=== PATIENT | male | born 1950 | race Caucasian/White ===

== ENCOUNTER 2016-12-11 12:20 | Inpatient (IN) | payer MEDICARE, MEDICAID ==
[2016-12-11] MEDS ORDERED: Sodium Chloride 0.9% 1,000 ML IV ONE (12:31)
--- NOTE | 2016-12-11 14:09 | EDM.PDOC ---
ED HPI GENERAL MEDICAL PROBLEM - General Chief Complaint: Abdominal Pain Stated Complaint: LOW BLOOD PRESSURE/ DIARRHEA Time Seen by Provider: 12/11/16 12:30 Source of Information: Reports: Patient History Limitations: Reports: No limitations - History of Present Illness INITIAL COMMENTS - FREE TEXT/NARRATIVE: History of present illness: [66-year-old male presenting status post open abdominal surgery for colon repair status post colonoscopy with perforation. Patient complaining of generalized weakness and constant diarrhea.] Review of systems: As per history of present illness and below otherwise all systems reviewed and negative. Past medical history: As per history of present illness and as reviewed below otherwise noncontributory. Surgical history: As per history of present illness and as reviewed below otherwise noncontributory. Social history: No reported history of drug or alcohol abuse. Family history: As per history of present illness and as reviewed below otherwise noncontributory. Physical exam: HEENT: Atraumatic, normocephalic, pupils reactive, negative for conjunctival pallor or scleral icterus, mucous membranes moist, throat clear, neck supple, nontender, trachea midline. Lungs: Clear to auscultation, breath sounds equal but dim throughout, chest nontender. Heart: S1S2, regular, negative for clicks, rubs, or JVD. Abdomen: Soft, distended, tender, with hypoactive bowel sounds. Midline is first lydia in place with active drainage Negative for masses or hepatosplenomegaly. Negative for costovertebral tenderness. Pelvis: Stable nontender. Genitourinary: Deferred. Rectal: Deferred. Extremities: Atraumatic, negative for cords or calf pain. Neurovascular unremarkable. Neuro: Awake, alert, oriented. Cranial nerves II through XII unremarkable. Cerebellum unremarkable. Motor and sensory unremarkable throughout. Exam nonfocal. Skin: Patient is pale and slightly noriega with mild distress Diagnostics: [X-ray, CBC, CMP, CT of abdomen and pelvis] Therapeutics: [] Impression: [Postoperative ileus] Plan: [] Definitive disposition and diagnosis as appropriate pending reevaluation and review of above. - Related Data Allergies Allergy/AdvReac Type Severity Reaction Status Date / Time No Known Allergies Allergy Verified 12/26/15 11:46 Home Meds: Home Meds Acetaminophen [Tylenol] 325 mg PO Q4H PRN 02/01/14 [History] Aspirin [Colten Chewable Aspirin] 81 mg PO DAILY 02/01/14 [History] Naproxen Sodium [Aleve] 220 mg PO BID PRN 11/14/15 [History] Ranitidine HCl [Zantac] 150 mg PO DAILY PRN 11/30/16 [History] Past Medical History Cardiovascular History: Reports: High cholesterol Gastrointestinal History: Reports: Colon polyp, GERD Genitourinary History: Reports: None Psychiatric History: Reports: Developmental delay Oncologic (Cancer) History: Reports: Prostate - Past Surgical History Head Surgeries/Procedures: Reports: None GI Surgical History: Reports: Colonoscopy, Other (see below) Other GI Surgeries/Procedures: Colonoscopy with polypectomy, hemorrhoiectomy Male Surgical History: Reports: Other (see below) Other Male Surgeries/Procedures: Prostate CA, radiation tx Social & Family History - Family History Family Medical History: Noncontributory - Tobacco Use Smoking Status *Q: Former Smoker Used Tobacco, but Quit: Yes Month Tobacco Last Used: quit 20 years ago Second Hand Smoke Exposure: No - Alcohol Use Days Per Week of Alcohol Use: 0 Number of Drinks Per Day: 0 Total Drinks Per Week: 0 - Recreational Drug Use Recreational Drug Use: No Drug Use in Last 12 Months: No ED ROS GENERAL - Review of Systems Review Of Systems: See Below (See history of present illness) ED EXAM, GENERAL - Physical Exam Exam: See Below (See history of present illness) Course - Vital Signs Last Recorded V/S: Last Vital Signs Temp 36.3 C 12/11/16 12:25 Pulse 120 H 12/11/16 12:25 Resp 19 12/11/16 12:25 BP 93/67 12/11/16 12:25 Pulse Ox 94 L 12/11/16 12:25 - Orders/Labs/Meds Orders: Active Orders 24 hr Category Date Time Status EKG Documentation Completion [RC] STAT Care 12/11/16 12:31 Active CULTURE WOUND [RM] Stat Lab 12/11/16 14:20 Uncollected UA W/MICROSCOPIC [URIN] Stat Lab 12/11/16 14:20 Ordered Levofloxacin/Dextrose 5%-Water [Levaquin in D5W 750 MG/ Med 12/11/16 15:58 Ordered 150 ML] 750 mg Premix Bag 1 bag IV ONETIME Sodium Chloride 0.9% [Normal Saline] 2,000 ml Med 12/11/16 15:57 Ordered IV STAT metroNIDAZOLE/Normal Saline [Flagyl 500 MG in NS 100 ML Med 12/11/16 15:57 Ordered ] 500 mg Premix Bag 1 bag IV ONETIME Saline Lock Insert [OM.PC] Stat Oth 12/11/16 12:31 Ordered Medication Orders Sodium Chloride (Normal Saline) 2,000 mls @ 999 mls/hr IV STAT ONE Stop: 12/11/16 17:57 Metronidazole 500 mg/ Premix 100 mls @ 100 mls/hr IV ONETIME ONE Stop: 12/11/16 16:56 Levofloxacin/Dextrose 750 mg/ (Premix) 150 mls @ 100 mls/hr IV ONETIME ONE Stop: 12/11/16 17:27 Labs: Laboratory Tests 12/11/16 12/11/16 12/11/16 Range/Units 12:43 12:43 12:43 WBC 15.60 H (4.0-11.0) K/uL RBC 3.90 L (4.50-5.90) M/uL Hgb 12.0 L (13.0-17.0) g/dL Hct 37.6 L (38.0-50.0) % MCV 96.4 (80.0-98.0) fL MCH 30.8 (27.0-32.0) pg MCHC 31.9 (31.0-37.0) g/dL RDW Std Deviation 50.3 (28.0-62.0) fl RDW Coeff of Shruthi 14 (11.0-15.0) % Plt Count 239 (150-400) K/uL MPV 10.90 (7.40-12.00) fL Neut % (Auto) 89.0 H (48.0-80.0) % Lymph % (Auto) 6.3 L (16.0-40.0) % Saline % (Auto) 4.6 (0.0-15.0) % Eos % (Auto) 0.0 (0.0-7.0) % Baso % (Auto) 0.1 (0.0-1.5) % Neut # 13.9 H (1.4-5.7) K/uL Lymph # 1.0 (0.6-2.4) K/uL Saline # 0.7 (0.0-0.8) K/uL Eos # 0.0 (0.0-0.7) K/uL Baso # 0.0 (0.0-0.1) K/uL Nucleated RBC % 0.0 /100WBC Nucleated RBCs # 0 K/uL Lactate (0.20-2.00) mmol/L Sodium 139 (136-146) mmol/L Potassium 3.9 (3.5-5.1) mmol/L Chloride 103 (98-110) mmol/L Carbon Dioxide 20 L (21-31) mmol/L BUN 30 H (6.0-23.0) mg/dL Creatinine 3.1 H (0.6-1.5) mg/dL Est Cr Clr Drug Dosing 19.89 mL/min Estimated GFR (MDRD) 20.3 ml/min Glucose 179 H (60-110) mg/dL Calcium 8.4 L (8.8-10.8) mg/dL Magnesium 1.9 (1.5-2.3) mEq/L Total Bilirubin 0.7 (0.1-1.5) mg/dL AST 76 H (5-40) IU/L ALT 88 H (8-54) IU/L Alkaline Phosphatase 93 (40-150) Total Protein 6.7 (6.0-8.0) g/dL Albumin 3.3 L (3.4-4.8) g/dL Globulin 3.4 (2.0-3.5) g/dL Albumin/Globulin Ratio 1.0 L (1.3-2.8) 12/11/16 Range/Units 14:43 WBC (4.0-11.0) K/uL RBC (4.50-5.90) M/uL Hgb (13.0-17.0) g/dL Hct (38.0-50.0) % MCV (80.0-98.0) fL MCH (27.0-32.0) pg MCHC (31.0-37.0) g/dL RDW Std Deviation (28.0-62.0) fl RDW Coeff of Shruthi (11.0-15.0) % Plt Count (150-400) K/uL MPV (7.40-12.00) fL Neut % (Auto) (48.0-80.0) % Lymph % (Auto) (16.0-40.0) % Saline % (Auto) (0.0-15.0) % Eos % (Auto) (0.0-7.0) % Baso % (Auto) (0.0-1.5) % Neut # (1.4-5.7) K/uL Lymph # (0.6-2.4) K/uL Saline # (0.0-0.8) K/uL Eos # (0.0-0.7) K/uL Baso # (0.0-0.1) K/uL Nucleated RBC % /100WBC Nucleated RBCs # K/uL Lactate 3.7 H (0.20-2.00) mmol/L Sodium (136-146) mmol/L Potassium (3.5-5.1) mmol/L Chloride (98-110) mmol/L Carbon Dioxide (21-31) mmol/L BUN (6.0-23.0) mg/dL Creatinine (0.6-1.5) mg/dL Est Cr Clr Drug Dosing mL/min Estimated GFR (MDRD) ml/min Glucose (60-110) mg/dL Calcium (8.8-10.8) mg/dL Magnesium (1.5-2.3) mEq/L Total Bilirubin (0.1-1.5) mg/dL AST (5-40) IU/L ALT (8-54) IU/L Alkaline Phosphatase (40-150) Total Protein (6.0-8.0) g/dL Albumin (3.4-4.8) g/dL Globulin (2.0-3.5) g/dL Albumin/Globulin Ratio (1.3-2.8) Meds: Medications Generic Name Dose Route Start Last Admin Trade Name Freq PRN Reason Stop Dose Admin Sodium Chloride 2,000 mls @ 999 mls/hr 12/11/16 15:57 Normal Saline IV 12/11/16 17:57 STAT ONE Metronidazole 500 mg/ Premix 100 mls @ 100 mls/hr 12/11/16 15:57 IV 12/11/16 16:56 ONETIME ONE Levofloxacin/Dextrose 750 mg/ 150 mls @ 100 mls/hr 12/11/16 15:58 Premix IV 12/11/16 17:27 ONETIME ONE Discontinued Medications Generic Name Dose Route Start Last Admin Trade Name Freq PRN Reason Stop Dose Admin Sodium Chloride 1,000 mls @ 999 mls/hr 12/11/16 12:31 12/11/16 12:40 Normal Saline IV 12/11/16 13:31 999 mls/hr .Bolus ONE Administration Ciprofloxacin/Dextrose 400 mg/ 200 mls @ 200 mls/hr 12/11/16 16:00 Premix IV Q12H SCOOTER Departure - Departure Time of Disposition: 16:06 Disposition: Admitted As Inpatient 67 Condition: good Clinical Impression: Abdominal pain Forms: ED Department Discharge - My Orders Last 24 Hours: My Active Orders 12/11/16 12:31 EKG Documentation Completion [RC] STAT Saline Lock Insert [OM.PC] Stat 12/11/16 14:20 CULTURE WOUND [RM] Stat UA W/MICROSCOPIC [URIN] Stat 12/11/16 15:57 Sodium Chloride 0.9% [Normal Saline] 2,000 ml IV STAT metroNIDAZOLE/Normal Saline [Flagyl 500 MG in NS 100 ML] 500 mg Premix Bag 1 bag IV ONETIME 12/11/16 15:58 Levofloxacin/Dextrose 5%-Water [Levaquin in D5W 750 MG/150 ML] 750 mg Premix Bag 1 bag IV ONETIME - Assessment/Plan Last 24 Hours: My Active Orders 12/11/16 12:31 EKG Documentation Completion [RC] STAT Saline Lock Insert [OM.PC] Stat 12/11/16 14:20 CULTURE WOUND [RM] Stat UA W/MICROSCOPIC [URIN] Stat 12/11/16 15:57 Sodium Chloride 0.9% [Normal Saline] 2,000 ml IV STAT metroNIDAZOLE/Normal Saline [Flagyl 500 MG in NS 100 ML] 500 mg Premix Bag 1 bag IV ONETIME 12/11/16 15:58 Levofloxacin/Dextrose 5%-Water [Levaquin in D5W 750 MG/150 ML] 750 mg Premix Bag 1 bag IV ONETIME
--- NOTE | 2016-12-11 14:20 | CR ---
EXAMINATION: Portable chest radiograph. HISTORY: Shortness of breath. FINDINGS: The trachea is midline. The cardiomediastinal silhouette is within normal limits. No pulmonary infil trates, effusions or pneumothorax. Acromioclavicular osteoarthritic changes are noted. IMPRESSION: No acute cardiopulmonary process.
--- NOTE | 2016-12-11 15:36 | CT ---
CT of the abdomen and pelvis without contrast. HISTORY: Pain TECHNIQUE: Axial CT images were obtained of the abdomen and pelvis without contrast. Coronal and sag ittal reconstructions obtained. FINDINGS: There is mild consolidation within the retrocardiac left lower lobe. Mild atelectasis is noted withi n the right lung base. The liver, spleen, adrenal glands, and pancreas appear unremarkable for noncontrast examination. The gallbladder appears normal. There is no bulky retroperitoneal lymphadenopathy. No abdominal ascite s. Laparotomy changes are noted along the ventral abdomen with a 8 x 3 cm fluid collection under the incision. There are no calcifications noted within the kidneys or along the courses of the ureters bilaterally . There is small bowel noted dilated up to 4.6 cm. The colon is decompressed. There is a small amount of air and stranding adjacent to the sigmoid colon, possibly related to history of recent colonoscop y complications. There is no bulky pelvic lymphadenopathy. No free fluid. No free air. There is a si ngle pocket of air within the urinary bladder, likely secondary to recent instrumentation. The visualized osseous structures appear normal. There is an anterior bridging osteophyte at the rig ht SI joint. IMPRESSION: 1. There are multiple dilated loops of small bowel measuring up to 4.6 cm, likely secondary to a pos toperative ileus. A partial mechanical bowel obstruction cannot be excluded. 2. There is fluid and air tracking along the midline laparotomy incision, likely postoperative serom a/hematoma. Correlate clinically for focal pain or redness. 3. Small pocket of probable free air adjacent to the sigmoid colon, this may correlate with history of colonoscopy complication. Otherwise no free air is noted along the peritoneal surfaces. 4. Mild consolidation within the left lung base, pneumonia is not excluded. 5. Atelectasis and likely trace pleural effusion within the right lung base.
[2016-12-11] MEDS ORDERED: metroNIDAZOLE/Normal Saline 500 MG in Premix Bag 1 BAG IV ONE (15:57)
[2016-12-11] MEDS ORDERED: Sodium Chloride 0.9% 2,000 ML IV ONE (15:57)
[2016-12-11] MEDS ORDERED: Levofloxacin/Dextrose 5%-Water 750 MG in Premix Bag 1 BAG IV ONE (15:58)
[2016-12-11] MEDS ORDERED: Ciprofloxacin in D5W 400 MG in Premix Bag 1 BAG IV SCH ×2 (16:00)
[2016-12-11] MEDS ORDERED: Ondansetron 4 MG/2 ML SDV IVPUSH PRN (17:55)
[2016-12-11] MEDS ORDERED: Morphine 2 MG/ML Syringe IVPUSH PRN (17:55)
[2016-12-11] MEDS ORDERED: Acetaminophen 325 MG Tab PO PRN (17:55)
[2016-12-11] MEDS ORDERED: Sodium Chloride 0.9% 1,000 ML IV SCH (18:00)
--- NOTE | 2016-12-11 18:15 | PCM.SN ---
- Free Text/Narrative Note: pt seen, chart reviewed; pt likely developed chemical ileus due to narcotic use ; avoid use narcotic for pain, as pt is not hurting at all; hydration, npo w ice chips; consult note dictated
--- NOTE | 2016-12-11 19:35 | HP ---
DATE OF : 1950 PRIMARY CARE PHYSICIAN: Unknown PCP HISTORY OF PRESENT ILLNESS: The patient is a 66-year-old slightly mentally challenged gentleman, who came in on for colonoscopy, sustained colonoscopy tear and was urgently taken to the operating room, status post repair. No bowel resection. It was repair of a perforation and postop, the patient was doing fine for the first couple of days in ICU uneventful, and then transferred to the floor. At that time, was noted to have bowel distention and the patient had prolonged ileus, probably due to narcotic [employer] use. However, the patient is very concerned about his pets at home and really backing to go home and he is able to tolerate diet and afebrile. He was sent home on , three days ago. Home health care nurse called this morning that the patient is having profuse diarrhea and at the same time, hypotensive. The patient was seen in the emergency room. In the emergency room, the patient basically is asymptomatic; however, blood pressure has fluctuated between 110 to 96 systolic. EKG is showing sinus tachycardia. White count 15, H and H is 13 and 39. Creatinine is 3.0, the patient's baseline usually is around 1.2 or 1.3. PAST MEDICAL HISTORY: Please refer to previous admission for details. PAST SURGICAL HISTORY: Please refer to previous admission for details. ALLERGIES: Please refer to previous admission for details. MEDICATIONS: Please refer to previous admission for details. PHYSICAL EXAMINATION: GENERAL: An elderly gentleman resting in bed, in no acute distress. HEENT: Normocephalic, atraumatic. Sclerae anicteric. LUNGS: Clear to auscultation. HEART: Regular rate and rhythm. ABDOMEN: Distended with serous fluid seeping along the incision, but nontender. Diminished bowel sounds. LABORATORY DATA: Upon consultation, blood work is as described above and CAT scan shows possible probable pocket of free air around the sigmoid colon, but there is no free air under the diaphragm. A long discussion with Radiology and it is probably air trapped from surgery. In light of the whole situation, the patient also agreed to stay in the hospital for observation; however, in light of his rising creatinine, possible acute kidney injury, likely from dehydration, the patient may benefit from transfer to higher facility for further care. At that time being, we will put an NG tube, increase hydration, and keep in ICU and consult the hospitalist for management and long discussion with the patient and family member. The patient is admitted for postop ileus and hydration. Consult hospital for further management. As always, thank you for the kind referral. ZAY MIGUEL /[id number]
[2016-12-11] MEDS: Piperacillin/Tazobactam 2.25 GM in Sodium Chloride 0.9% 50 ML IV SCH (20:11)
[2016-12-11] MEDS: Lactated Ringers 1,000 ML IV SCH (20:25)
--- NOTE | 2016-12-11 20:25 | PCM.HP ---
H&P History of Present Illness - General Date of Service: 12/11/16 Source of Information: Patient, Family, Provider, RN - History of Present Illness Initial Comments - Free Text/Narative: history as per Dr Wiggins's note. He was found at home today with systolic blood pressure of 60 mm Hg and with hypotension noted. He was evaluated in theED and Dr Wiggins was also consulted on the case. - Related Data Allergies/Adverse Reactions: Allergies Allergy/AdvReac Type Severity Reaction Status Date / Time No Known Allergies Allergy Verified 12/26/15 11:46 Home Medications: Home Meds Acetaminophen [Tylenol] 325 mg PO Q4H PRN 02/01/14 [History] Aspirin [Colten Chewable Aspirin] 81 mg PO DAILY 02/01/14 [History] Naproxen Sodium [Aleve] 220 mg PO BID PRN 11/14/15 [History] Ranitidine HCl [Zantac] 150 mg PO DAILY PRN 11/30/16 [History] Past Medical History Cardiovascular History: Reports: High cholesterol Respiratory History: Denies: COPD Gastrointestinal History: Reports: Colon polyp, GERD Genitourinary History: Reports: None Neurological History: Reports: Other (see below) (history of chronic cognitive impairment). Denies: MS Psychiatric History: Reports: Developmental delay Endocrine/Metabolic History: Denies: Diabetes, type II Oncologic (Cancer) History: Reports: Prostate - Past Surgical History Head Surgeries/Procedures: Reports: None GI Surgical History: Reports: Colonoscopy, Other (see below) Other GI Surgeries/Procedures: Colonoscopy with polypectomy, hemorrhoiectomy Male Surgical History: Reports: Other (see below) Other Male Surgeries/Procedures: Prostate CA, radiation tx Social & Family History - Family History Family Medical History: Noncontributory - Tobacco Use Smoking Status *Q: Former Smoker Used Tobacco, but Quit: Yes Month Tobacco Last Used: quit 20 years ago Second Hand Smoke Exposure: No - Caffeine Use Caffeine Use: Reports: None - Alcohol Use Days Per Week of Alcohol Use: 0 Number of Drinks Per Day: 0 Total Drinks Per Week: 0 - Recreational Drug Use Recreational Drug Use: No Drug Use in Last 12 Months: No H&P Review of Systems - Review of Systems: Review Of Systems: See Below General: Denies: fever Pulmonary: Denies: shortness of breath, wheezing, cough, sputum Cardiovascular: Denies: chest pain, PND Gastrointestinal: Denies: Black stool, Bloody stool, Hematochezia Genitourinary: Denies: dysuria Skin: Denies: jaundice Neurological: Denies: confusion Exam - Exam Exam: See Below - Vital Signs Vital Signs: Last Vital Signs Temp 97.3 F 12/11/16 12:25 Pulse 108 H 12/11/16 19:28 Resp 20 12/11/16 19:28 BP 111/75 12/11/16 19:28 Pulse Ox 97 12/11/16 19:28 Weight: 141.1 kg - Exam General: alert HEENT: Other (dry oral mucosa) Neck: trachea midline Lungs: Clear to auscultation, Normal respiratory effort Cardiovascular: regular rate, regular rhythm Abdomen: soft, other (midline surgical wound with clear drainage. ) (Male) Exam: Deferred Rectal (Males) Exam: Deferred Extremities: No: edema Skin: other (cap refill delayed to about four seconds in toes. ) Neuro Extensive - Mental Status: normal mood/affect Neuro Extensive - Motor, Sensory, Reflexes: No: facial palsy (L), facial palsy ( R), hemiplagia (L), hemiplagia (R) - Patient Data Result Diagrams: 12/11/16 12:43 12/11/16 12:43 *Q Meaningful Use (ADM) - VTE *Q VTE Criteria *Q: - Stroke *Q Stroke Criteria *Q: - AMI *Q AMI Criteria *Q: - Problem List (1) Acute renal failure SNOMED Code(s): 94794179 ICD Code: N17.9 - ACUTE KIDNEY FAILURE, UNSPECIFIED Status: Acute Current Visit: Yes Problem List Initiated/Reviewed/Updated: Yes Orders Last 24hrs: Active Orders 24 hr Category Date Time Status Antiembolic Devices [RC] PER UNIT ROUTINE Care 12/11/16 17:57 Active NG [Gastrointestinal Tube Mgmt] [RC] ASDIRECTED Care 12/11/16 18:08 Active Notify Provider Consults [RC] ASDIRECTED Care 12/11/16 17:58 Active Oxygen Therapy [RC] PRN Care 12/11/16 17:55 Active VTE/DVT Education [RC] PER UNIT ROUTINE Care 12/11/16 17:55 Active Vital Signs [RC] Q4H Care 12/11/16 17:55 Active Consult to Physician [CONS] Routine Cons 12/11/16 17:55 Active NPO Now [Nothing per Oral Now Diet] [DIET] Diet 12/11/16 Breakfast Active Regular Diet [DIET] Diet 12/11/16 Dinner Active Abdomen 1V Flat [CR] Routine Exams 12/11/16 18:02 Taken CBC WITH AUTO DIFF [HEME] AM Lab 12/12/16 05:11 Ordered CBC WITH AUTO DIFF [HEME] AM Lab 12/13/16 05:11 Ordered CBC WITH AUTO DIFF [HEME] AM Lab 12/14/16 05:11 Ordered COMPREHENSIVE METABOLIC PN,CMP [CHEM] AM Lab 12/12/16 05:11 Ordered COMPREHENSIVE METABOLIC PN,CMP [CHEM] AM Lab 12/13/16 05:11 Ordered COMPREHENSIVE METABOLIC PN,CMP [CHEM] AM Lab 12/14/16 05:11 Ordered MAGNESIUM [CHEM] AM Lab 12/12/16 05:11 Ordered MAGNESIUM [CHEM] AM Lab 12/13/16 05:11 Ordered MAGNESIUM [CHEM] AM Lab 12/14/16 05:11 Ordered PHOSPHORUS [CHEM] AM Lab 12/12/16 05:11 Ordered UA W/O MICROSCOPIC [URIN] Routine Lab 12/11/16 17:55 Uncollected Acetaminophen [Tylenol] Med 12/11/16 17:55 Active 650 mg PO Q4H PRN Lactated Ringers [Ringers, Lactated] 1,000 ml Med 12/11/16 18:15 Active IV ASDIRECTED Ondansetron [Zofran] Med 12/11/16 17:55 Active 4 mg IVPUSH Q4H PRN Pantoprazole [Protonix IV] Med 12/11/16 21:00 Active 40 mg IV Q12HR Piperacillin/Tazobactam [Zosyn] 2.25 gm Med 12/11/16 18:00 Active Sodium Chloride 0.9% [Normal Saline] 50 ml IV Q6H Sodium Chloride 0.9% [Normal Saline] 1,000 ml Med 12/11/16 18:00 Active IV ASDIRECTED Nasogastric Orogastric Tube Insertion [OM.PC] Routine Oth 12/11/16 18:02 Ordered Sequential Compression Device [OM.PC] Per Unit Routine Oth 12/11/16 17:56 Ordered Resuscitation Status Routine Resus Stat 12/11/16 17:55 Ordered Medication Orders Acetaminophen (Tylenol) 650 mg PO Q4H PRN PRN Reason: Pain (Mild 1-3)/fever Piperacillin Sod/Tazobactam (Sod 2.25 gm/ Sodium Chloride) 50 mls @ 100 mls/hr IV Q6H SCOOTER Last Admin: 12/11/16 20:11 Dose: 100 mls/hr Sodium Chloride (Normal Saline) 1,000 mls @ 125 mls/hr IV ASDIRECTED SCOOTER Last Admin: 12/11/16 20:13 Dose: 125 mls/hr Lactated Ringer's (Ringers, Lactated) 1,000 mls @ 150 mls/hr IV ASDIRECTED SCOOTER Ondansetron HCl (Zofran) 4 mg IVPUSH Q4H PRN PRN Reason: Nausea Pantoprazole Sodium (Protonix Iv) 40 mg IV Q12HR ON LICENSE OF [facility] Assessment/Plan Comment:: must consider sepsis see orders must consider possibility of bowel perforation but not definite Dr Wiggins consulting on case. Dylan Mckee MD
[2016-12-11] MEDS ORDERED: Pantoprazole 40 MG Vial IV SCH (21:00)
[2016-12-11] MEDS: metroNIDAZOLE/Normal Saline 500 MG in Premix Bag 1 BAG IV SCH (21:01)
[2016-12-12] MEDS: Piperacillin/Tazobactam 2.25 GM in Sodium Chloride 0.9% 50 ML IV SCH ×4 (00:12→18:00)
[2016-12-12] MEDS: metroNIDAZOLE/Normal Saline 500 MG in Premix Bag 1 BAG IV SCH ×4 (02:12→21:07)
[2016-12-12] MEDS: Lactated Ringers 1,000 ML IV SCH ×2 (04:59→15:37)
--- NOTE | 2016-12-12 08:08 | PCM.SURGPN ---
- General Info Date of Service: 12/12/16 Functional Status: Reports: pain controlled - Review of Systems HEENT: Reports: no symptoms Gastrointestinal: Reports: No symptoms ("I passed flatus and I want my food") - Patient Data Vitals - most recent: Last Vital Signs Temp 97.2 F 12/12/16 04:00 Pulse 108 H 12/11/16 19:28 Resp 21 H 12/12/16 07:00 BP 116/79 12/12/16 07:00 Pulse Ox 91 L 12/12/16 07:00 Weight - most recent: 142 lb 13.753 oz I&O - last 24 hours: Intake & Output 12/11/16 12/12/16 12/12/16 22:59 06:59 14:59 Intake Total 216 1300 Output Total 560 Balance 216 740 Lab Results last 24 hrs: Laboratory Results - last 24 hr 12/11/16 12/11/16 12/12/16 Range/Units 21:20 22:22 05:50 WBC 13.58 H (4.0-11.0) K/uL RBC 3.09 L (4.50-5.90) M/uL Hgb 9.5 L (13.0-17.0) g/dL Hct 29.3 L (38.0-50.0) % MCV 94.8 (80.0-98.0) fL MCH 30.7 (27.0-32.0) pg MCHC 32.4 (31.0-37.0) g/dL RDW Std Deviation 49.9 (28.0-62.0) fl RDW Coeff of Shruthi 14 (11.0-15.0) % Plt Count 211 (150-400) K/uL MPV 10.80 (7.40-12.00) fL Neut % (Auto) 86.2 H (48.0-80.0) % Lymph % (Auto) 6.7 L (16.0-40.0) % [place] % (Auto) 7.0 (0.0-15.0) % Eos % (Auto) 0.0 (0.0-7.0) % Baso % (Auto) 0.1 (0.0-1.5) % Neut # 11.7 H (1.4-5.7) K/uL Lymph # 0.9 (0.6-2.4) K/uL [place] # 1.0 H (0.0-0.8) K/uL Eos # 0.0 (0.0-0.7) K/uL Baso # 0.0 (0.0-0.1) K/uL Nucleated RBC % 0.0 /100WBC Nucleated RBCs # 0 K/uL Lactate 1.8 (0.20-2.00) mmol/L Sodium (136-146) mmol/L Potassium (3.5-5.1) mmol/L Chloride (98-110) mmol/L Carbon Dioxide (21-31) mmol/L BUN (6.0-23.0) mg/dL Creatinine (0.6-1.5) mg/dL Est Cr Clr Drug Dosing mL/min Estimated GFR (MDRD) ml/min Glucose (60-110) mg/dL Calcium (8.8-10.8) mg/dL Phosphorus (2.4-4.7) mg/dL Magnesium (1.5-2.3) mEq/L Total Bilirubin (0.1-1.5) mg/dL AST (5-40) IU/L ALT (8-54) IU/L Alkaline Phosphatase (40-150) Total Protein (6.0-8.0) g/dL Albumin (3.4-4.8) g/dL Globulin (2.0-3.5) g/dL Albumin/Globulin Ratio (1.3-2.8) Urine Color YELLOW Urine Appearance SLT CLOUDY Urine pH 5.5 (5.0-8.0) Ur Specific [place] >= 1.030 (1.001-1.035) Urine Protein TRACE (NEGATIVE) mg/dL Urine Glucose (UA) NEGATIVE (NEGATIVE) mg/dL Urine Ketones NEGATIVE (NEGATIVE) mg/dL Urine Occult Blood TRACE-LYSED (NEGATIVE) Urine Nitrite NEGATIVE (NEGATIVE) Urine Bilirubin SMALL H (NEGATIVE) Urine Urobilinogen 0.2 (<2.0) EU/dL Ur Leukocyte Esterase NEGATIVE (NEGATIVE) 12/12/16 Range/Units 05:50 WBC (4.0-11.0) K/uL RBC (4.50-5.90) M/uL Hgb (13.0-17.0) g/dL Hct (38.0-50.0) % MCV (80.0-98.0) fL MCH (27.0-32.0) pg MCHC (31.0-37.0) g/dL RDW Std Deviation (28.0-62.0) fl RDW Coeff of Shruthi (11.0-15.0) % Plt Count (150-400) K/uL MPV (7.40-12.00) fL Neut % (Auto) (48.0-80.0) % Lymph % (Auto) (16.0-40.0) % [place] % (Auto) (0.0-15.0) % Eos % (Auto) (0.0-7.0) % Baso % (Auto) (0.0-1.5) % Neut # (1.4-5.7) K/uL Lymph # (0.6-2.4) K/uL [place] # (0.0-0.8) K/uL Eos # (0.0-0.7) K/uL Baso # (0.0-0.1) K/uL Nucleated RBC % /100WBC Nucleated RBCs # K/uL Lactate (0.20-2.00) mmol/L Sodium 139 (136-146) mmol/L Potassium 3.5 (3.5-5.1) mmol/L Chloride 110 (98-110) mmol/L Carbon Dioxide 18 L (21-31) mmol/L BUN 34 H (6.0-23.0) mg/dL Creatinine 1.8 H (0.6-1.5) mg/dL Est Cr Clr Drug Dosing 34.49 mL/min Estimated GFR (MDRD) 38.1 ml/min Glucose 125 H (60-110) mg/dL Calcium 7.5 L (8.8-10.8) mg/dL Phosphorus 3.7 (2.4-4.7) mg/dL Magnesium 1.6 (1.5-2.3) mEq/L Total Bilirubin 0.5 (0.1-1.5) mg/dL AST 24 (5-40) IU/L ALT 54 (8-54) IU/L Alkaline Phosphatase 72 (40-150) Total Protein 5.3 L (6.0-8.0) g/dL Albumin 2.6 L (3.4-4.8) g/dL Globulin 2.7 (2.0-3.5) g/dL Albumin/Globulin Ratio 1.0 L (1.3-2.8) Urine Color Urine Appearance Urine pH (5.0-8.0) Ur Specific [place] (1.001-1.035) Urine Protein (NEGATIVE) mg/dL Urine Glucose (UA) (NEGATIVE) mg/dL Urine Ketones (NEGATIVE) mg/dL Urine Occult Blood (NEGATIVE) Urine Nitrite (NEGATIVE) Urine Bilirubin (NEGATIVE) Urine Urobilinogen (<2.0) EU/dL Ur Leukocyte Esterase (NEGATIVE) Med Orders - Current: Current Medications Acetaminophen (Tylenol) 650 mg PO Q4H PRN PRN Reason: Pain (Mild 1-3)/fever Piperacillin Sod/Tazobactam (Sod 2.25 gm/ Sodium Chloride) 50 mls @ 100 mls/hr IV Q6H [facility] Last Admin: 12/12/16 05:37 Dose: 100 mls/hr Lactated Ringer's (Ringers, Lactated) 1,000 mls @ 125 mls/hr IV ASDIRECTED [facility] Last Infusion: 12/12/16 07:49 Dose: 125 mls/hr Metronidazole 500 mg/ Premix 100 mls @ 100 mls/hr IV Q6H [facility] Last Admin: 12/12/16 02:12 Dose: 100 mls/hr Ondansetron HCl (Zofran) 4 mg IVPUSH Q4H PRN PRN Reason: Nausea Pantoprazole Sodium (Protonix Iv) 40 mg IV Q12HR [facility] Last Admin: 12/11/16 21:02 Dose: 40 mg Discontinued Medications Sodium Chloride (Normal Saline) 1,000 mls @ 999 mls/hr IV .Bolus ONE Stop: 12/11/16 13:31 Last Admin: 12/11/16 12:40 Dose: 999 mls/hr Ciprofloxacin/Dextrose 400 mg/ (Premix) 200 mls @ 200 mls/hr IV Q12H [facility] Sodium Chloride (Normal Saline) 2,000 mls @ 999 mls/hr IV STAT ONE Stop: 12/11/16 17:57 Last Admin: 12/11/16 16:22 Dose: 999 mls/hr Metronidazole 500 mg/ Premix 100 mls @ 100 mls/hr IV ONETIME ONE Stop: 12/11/16 16:56 Last Admin: 12/11/16 16:22 Dose: 100 mls/hr Levofloxacin/Dextrose 750 mg/ (Premix) 150 mls @ 100 mls/hr IV ONETIME ONE Stop: 12/11/16 17:27 Last Admin: 12/11/16 18:08 Dose: 100 mls/hr Sodium Chloride (Normal Saline) 1,000 mls @ 125 mls/hr IV ASDIRECTED [facility] Last Admin: 12/11/16 20:13 Dose: 125 mls/hr Morphine Sulfate (Morphine) 2 mg IVPUSH Q2H PRN PRN Reason: Pain (severe 7-10) Stop: 12/12/16 17:56 - Exam General: alert, oriented Lungs: Normal respiratory effort Cardiovascular: regular rate Abdomen: no tenderness (decrease distention; wound has minimal clear serosang drainage) - Problem List Review Problem List Initiated/Reviewed/Updated: Yes - My Orders Last 24 Hours: Active Orders 24 hr Category Date Time Status Antiembolic Devices [RC] PER UNIT ROUTINE Care 12/11/16 17:57 Active NG [Gastrointestinal Tube Mgmt] [RC] Q4H Care 12/11/16 18:08 Active Notify Provider Consults [RC] ASDIRECTED Care 12/11/16 17:58 Active Oxygen Therapy [RC] PRN Care 12/11/16 17:55 Active VTE/DVT Education [RC] PER UNIT ROUTINE Care 12/11/16 17:55 Active Vital Signs [RC] Q1H Care 12/11/16 17:55 Active Consult to Physician [CONS] Routine Cons 12/11/16 17:55 Active Clear Liquid Diet [DIET] Diet 12/12/16 Breakfast Active Abdomen 1V Flat [CR] Routine Exams 12/11/16 18:02 Taken CBC WITH AUTO DIFF [HEME] AM Lab 12/13/16 05:11 Ordered CBC WITH AUTO DIFF [HEME] AM Lab 12/14/16 05:11 Ordered CDIFF TOX A+B [OP] Routine Lab 12/11/16 20:26 Uncollected COMPREHENSIVE METABOLIC PN,CMP [CHEM] AM Lab 12/13/16 05:11 Ordered COMPREHENSIVE METABOLIC PN,CMP [CHEM] AM Lab 12/14/16 05:11 Ordered MAGNESIUM [CHEM] AM Lab 12/13/16 05:11 Ordered MAGNESIUM [CHEM] AM Lab 12/14/16 05:11 Ordered Acetaminophen [Tylenol] Med 12/11/16 17:55 Active 650 mg PO Q4H PRN Lactated Ringers [Ringers, Lactated] 1,000 ml Med 12/11/16 18:15 Active IV ASDIRECTED Ondansetron [Zofran] Med 12/11/16 17:55 Active 4 mg IVPUSH Q4H PRN Pantoprazole [Protonix IV] Med 12/11/16 21:00 Active 40 mg IV Q12HR Piperacillin/Tazobactam [Zosyn] 2.25 gm Med 12/11/16 18:00 Active Sodium Chloride 0.9% [Normal Saline] 50 ml IV Q6H metroNIDAZOLE/Normal Saline [Flagyl 500 MG in NS 100 ML Med 12/11/16 20:30 Active ] 500 mg Premix Bag 1 bag IV Q6H Nasogastric Orogastric Tube Insertion [OM.PC] Routine Oth 12/11/16 18:02 Ordered Nasogastric Orogastric Tube Removal [OM.PC] Routine Oth 12/12/16 07:48 Ordered Sequential Compression Device [OM.PC] Per Unit Routine Oth 12/11/16 17:56 Ordered Resuscitation Status Routine Resus Stat 12/11/16 17:55 Ordered Medication Orders Acetaminophen (Tylenol) 650 mg PO Q4H PRN PRN Reason: Pain (Mild 1-3)/fever Piperacillin Sod/Tazobactam (Sod 2.25 gm/ Sodium Chloride) 50 mls @ 100 mls/hr IV Q6H [facility] Last Admin: 12/12/16 05:37 Dose: 100 mls/hr Infusion: 12/12/16 00:42 Dose: 100 mls/hr Admin: 12/12/16 00:12 Dose: 100 mls/hr Infusion: 12/11/16 20:41 Dose: 100 mls/hr Admin: 12/11/16 20:11 Dose: 100 mls/hr Lactated Ringer's (Ringers, Lactated) 1,000 mls @ 125 mls/hr IV ASDIRECTED [facility] Last Infusion: 12/12/16 07:49 Dose: 125 mls/hr Admin: 12/12/16 04:59 Dose: 150 mls/hr Infusion: 12/12/16 03:06 Dose: 150 mls/hr Admin: 12/11/16 20:25 Dose: 150 mls/hr Metronidazole 500 mg/ Premix 100 mls @ 100 mls/hr IV Q6H [facility] Last Admin: 12/12/16 02:12 Dose: 100 mls/hr Infusion: 12/11/16 22:01 Dose: 100 mls/hr Admin: 12/11/16 21:01 Dose: 100 mls/hr Ondansetron HCl (Zofran) 4 mg IVPUSH Q4H PRN PRN Reason: Nausea Pantoprazole Sodium (Protonix Iv) 40 mg IV Q12HR [facility] Last Admin: 12/11/16 21:02 Dose: 40 mg - Assessment Assessment (Free Text/Narrative):: uneventful; creatine improved to 1.8; adequate urine output, continue to be annie in color; ngt 200 cc in 24 hr; and pt is passing gas; dc ngt to clear liquid; sit up in chair; continue abd binder; re check lab in morning; decrease ivf to 125 - Plan Plan (Free Text/Narrative):: uneventful; creatine improved to 1.8; adequate urine output, continue to be annie in color; ngt 200 cc in 24 hr; and pt is passing gas; dc ngt to clear liquid; sit up in chair; continue abd binder; re check lab in morning; decrease ivf to 125
[2016-12-12] MEDS: Pantoprazole 40 MG in Sodium Chloride 0.9% 10 ML IV SCH ×2 (09:19→21:05)
--- NOTE | 2016-12-12 15:59 | PCM.PN ---
- General Info Date of Service: 12/12/16 Functional Status: Reports: pain controlled, tolerating diet (on clear liquids) - Review of Systems Gastrointestinal: Denies: Abdominal pain - Patient Data Vitals - most recent: Last Vital Signs Temp 97.5 F 12/12/16 12:00 Pulse 108 H 12/11/16 19:28 Resp 26 H 12/12/16 15:00 BP 116/76 12/12/16 15:00 Pulse Ox 93 L 12/12/16 15:00 Weight - most recent: 64.8 kg I&O - last 24 hours: Intake & Output 12/12/16 12/12/16 12/12/16 06:59 14:59 22:59 Intake Total 8824 625 5879 Output Total 560 Balance 618 869 2385 Lab Results last 24 hrs: Laboratory Results - last 24 hr 12/11/16 12/11/16 12/12/16 Range/Units 21:20 22:22 05:50 WBC 13.58 H (4.0-11.0) K/uL RBC 3.09 L (4.50-5.90) M/uL Hgb 9.5 L (13.0-17.0) g/dL Hct 29.3 L (38.0-50.0) % MCV 94.8 (80.0-98.0) fL MCH 30.7 (27.0-32.0) pg MCHC 32.4 (31.0-37.0) g/dL RDW Std Deviation 49.9 (28.0-62.0) fl RDW Coeff of Shruthi 14 (11.0-15.0) % Plt Count 211 (150-400) K/uL MPV 10.80 (7.40-12.00) fL Neut % (Auto) 86.2 H (48.0-80.0) % Lymph % (Auto) 6.7 L (16.0-40.0) % [place] % (Auto) 7.0 (0.0-15.0) % Eos % (Auto) 0.0 (0.0-7.0) % Baso % (Auto) 0.1 (0.0-1.5) % Neut # 11.7 H (1.4-5.7) K/uL Lymph # 0.9 (0.6-2.4) K/uL [place] # 1.0 H (0.0-0.8) K/uL Eos # 0.0 (0.0-0.7) K/uL Baso # 0.0 (0.0-0.1) K/uL Nucleated RBC % 0.0 /100WBC Nucleated RBCs # 0 K/uL Lactate 1.8 (0.20-2.00) mmol/L Sodium (136-146) mmol/L Potassium (3.5-5.1) mmol/L Chloride (98-110) mmol/L Carbon Dioxide (21-31) mmol/L BUN (6.0-23.0) mg/dL Creatinine (0.6-1.5) mg/dL Est Cr Clr Drug Dosing mL/min Estimated GFR (MDRD) ml/min Glucose (60-110) mg/dL Calcium (8.8-10.8) mg/dL Phosphorus (2.4-4.7) mg/dL Magnesium (1.5-2.3) mEq/L Total Bilirubin (0.1-1.5) mg/dL AST (5-40) IU/L ALT (8-54) IU/L Alkaline Phosphatase (40-150) Total Protein (6.0-8.0) g/dL Albumin (3.4-4.8) g/dL Globulin (2.0-3.5) g/dL Albumin/Globulin Ratio (1.3-2.8) Urine Color YELLOW Urine Appearance SLT CLOUDY Urine pH 5.5 (5.0-8.0) Ur Specific [place] >= 1.030 (1.001-1.035) Urine Protein TRACE (NEGATIVE) mg/dL Urine Glucose (UA) NEGATIVE (NEGATIVE) mg/dL Urine Ketones NEGATIVE (NEGATIVE) mg/dL Urine Occult Blood TRACE-LYSED (NEGATIVE) Urine Nitrite NEGATIVE (NEGATIVE) Urine Bilirubin SMALL H (NEGATIVE) Urine Urobilinogen 0.2 (<2.0) EU/dL Ur Leukocyte Esterase NEGATIVE (NEGATIVE) 12/12/16 Range/Units 05:50 WBC (4.0-11.0) K/uL RBC (4.50-5.90) M/uL Hgb (13.0-17.0) g/dL Hct (38.0-50.0) % MCV (80.0-98.0) fL MCH (27.0-32.0) pg MCHC (31.0-37.0) g/dL RDW Std Deviation (28.0-62.0) fl RDW Coeff of Shruthi (11.0-15.0) % Plt Count (150-400) K/uL MPV (7.40-12.00) fL Neut % (Auto) (48.0-80.0) % Lymph % (Auto) (16.0-40.0) % [place] % (Auto) (0.0-15.0) % Eos % (Auto) (0.0-7.0) % Baso % (Auto) (0.0-1.5) % Neut # (1.4-5.7) K/uL Lymph # (0.6-2.4) K/uL [place] # (0.0-0.8) K/uL Eos # (0.0-0.7) K/uL Baso # (0.0-0.1) K/uL Nucleated RBC % /100WBC Nucleated RBCs # K/uL Lactate (0.20-2.00) mmol/L Sodium 139 (136-146) mmol/L Potassium 3.5 (3.5-5.1) mmol/L Chloride 110 (98-110) mmol/L Carbon Dioxide 18 L (21-31) mmol/L BUN 34 H (6.0-23.0) mg/dL Creatinine 1.8 H (0.6-1.5) mg/dL Est Cr Clr Drug Dosing 34.49 mL/min Estimated GFR (MDRD) 38.1 ml/min Glucose 125 H (60-110) mg/dL Calcium 7.5 L (8.8-10.8) mg/dL Phosphorus 3.7 (2.4-4.7) mg/dL Magnesium 1.6 (1.5-2.3) mEq/L Total Bilirubin 0.5 (0.1-1.5) mg/dL AST 24 (5-40) IU/L ALT 54 (8-54) IU/L Alkaline Phosphatase 72 (40-150) Total Protein 5.3 L (6.0-8.0) g/dL Albumin 2.6 L (3.4-4.8) g/dL Globulin 2.7 (2.0-3.5) g/dL Albumin/Globulin Ratio 1.0 L (1.3-2.8) Urine Color Urine Appearance Urine pH (5.0-8.0) Ur Specific [place] (1.001-1.035) Urine Protein (NEGATIVE) mg/dL Urine Glucose (UA) (NEGATIVE) mg/dL Urine Ketones (NEGATIVE) mg/dL Urine Occult Blood (NEGATIVE) Urine Nitrite (NEGATIVE) Urine Bilirubin (NEGATIVE) Urine Urobilinogen (<2.0) EU/dL Ur Leukocyte Esterase (NEGATIVE) Wilmer Results last 24 hrs: Microbiology 12/12/16 09:10 Clostridium difficile Toxin A&B (M) - Final Stool / Feces Negative for C.Diff Toxin/AG Med Orders - Current: Current Medications Acetaminophen (Tylenol) 650 mg PO Q4H PRN PRN Reason: Pain (Mild 1-3)/fever Piperacillin Sod/Tazobactam (Sod 2.25 gm/ Sodium Chloride) 50 mls @ 100 mls/hr IV Q6H [facility] Last Admin: 12/12/16 11:59 Dose: 100 mls/hr Lactated Ringer's (Ringers, Lactated) 1,000 mls @ 100 mls/hr IV ASDIRECTED [facility] Last Admin: 12/12/16 15:37 Dose: 125 mls/hr Metronidazole 500 mg/ Premix 100 mls @ 100 mls/hr IV Q6H [facility] Last Admin: 12/12/16 13:51 Dose: 100 mls/hr Pantoprazole Sodium 40 mg/ (Sodium Chloride) 10 mls @ 300 mls/hr IV Q12H [facility] Last Admin: 12/12/16 09:19 Dose: 300 mls/hr Ondansetron HCl (Zofran) 4 mg IVPUSH Q4H PRN PRN Reason: Nausea Discontinued Medications Sodium Chloride (Normal Saline) 1,000 mls @ 999 mls/hr IV .Bolus ONE Stop: 12/11/16 13:31 Last Admin: 12/11/16 12:40 Dose: 999 mls/hr Ciprofloxacin/Dextrose 400 mg/ (Premix) 200 mls @ 200 mls/hr IV Q12H [facility] Sodium Chloride (Normal Saline) 2,000 mls @ 999 mls/hr IV STAT ONE Stop: 12/11/16 17:57 Last Admin: 12/11/16 16:22 Dose: 999 mls/hr Metronidazole 500 mg/ Premix 100 mls @ 100 mls/hr IV ONETIME ONE Stop: 12/11/16 16:56 Last Admin: 12/11/16 16:22 Dose: 100 mls/hr Levofloxacin/Dextrose 750 mg/ (Premix) 150 mls @ 100 mls/hr IV ONETIME ONE Stop: 12/11/16 17:27 Last Admin: 12/11/16 18:08 Dose: 100 mls/hr Sodium Chloride (Normal Saline) 1,000 mls @ 125 mls/hr IV ASDIRECTED [facility] Last Admin: 12/11/16 20:13 Dose: 125 mls/hr Morphine Sulfate (Morphine) 2 mg IVPUSH Q2H PRN PRN Reason: Pain (severe 7-10) Stop: 12/12/16 17:56 Pantoprazole Sodium (Protonix Iv) 40 mg IV Q12HR [facility] Last Admin: 12/11/16 21:02 Dose: 40 mg - Exam General: alert, cooperative Lungs: Clear to auscultation, Normal respiratory effort Cardiovascular: regular rate, regular rhythm Physical Findings Comments:: abdominal exam as per Dr Wiggins - Problem List & Annotations (1) Acute renal failure SNOMED Code(s): 91494753 Code(s): N17.9 - ACUTE KIDNEY FAILURE, UNSPECIFIED Status: Acute Current Visit: Yes (2) Sepsis SNOMED Code(s): 86003813 Code(s): A41.9 - SEPSIS, UNSPECIFIED ORGANISM Status: Acute Current Visit : Yes - Problem List Review Problem List Initiated/Reviewed/Updated: Yes - My Orders Last 24 Hours: My Active Orders 12/11/16 17:55 Oxygen Therapy [RC] PRN Vital Signs [RC] Q1H Consult to Physician [CONS] Routine Acetaminophen [Tylenol] 650 mg PO Q4H PRN Ondansetron [Zofran] 4 mg IVPUSH Q4H PRN Resuscitation Status Routine 12/11/16 17:56 Sequential Compression Device [OM.PC] Per Unit Routine 12/11/16 17:57 Antiembolic Devices [RC] PER UNIT ROUTINE 12/11/16 18:00 Piperacillin/Tazobactam [Zosyn] 2.25 gm Sodium Chloride 0.9% [Normal Saline] 50 ml IV Q6H 12/11/16 20:30 metroNIDAZOLE/Normal Saline [Flagyl 500 MG in NS 100 ML] 500 mg Premix Bag 1 bag IV Q6H 12/12/16 09:00 Pantoprazole [Protonix IV] 40 mg Sodium Chloride 0.9% [Normal Saline] 10 ml IV Q12H 12/12/16 15:54 Transfer Patient (Change bed) [ADT] Routine 12/13/16 05:11 CBC WITH AUTO DIFF [HEME] AM COMPREHENSIVE METABOLIC PN,CMP [CHEM] AM MAGNESIUM [CHEM] AM 12/14/16 05:11 CBC WITH AUTO DIFF [HEME] AM COMPREHENSIVE METABOLIC PN,CMP [CHEM] AM MAGNESIUM [CHEM] AM - Plan Plan:: must consider sepsis see orders must consider possibility of bowel perforation but not definite Dr Wiggins consulting on case. 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 At this point he is marketly improved. his acute renal failure is improved as manifested by his serum creatinine level trending downward. Carl Mckee MD
[2016-12-13] MEDS: Piperacillin/Tazobactam 2.25 GM in Sodium Chloride 0.9% 50 ML IV SCH ×4 (00:25→18:52)
[2016-12-13] MEDS: metroNIDAZOLE/Normal Saline 500 MG in Premix Bag 1 BAG IV SCH ×4 (02:23→20:29)
[2016-12-13] MEDS: Lactated Ringers 1,000 ML IV SCH ×2 (02:26→16:47)
[2016-12-13] MEDS: Pantoprazole 40 MG in Sodium Chloride 0.9% 10 ML IV SCH ×2 (08:06→20:27)
[2016-12-13] MEDS ORDERED: Potassium Chloride 20 MEQ Tab.ER PO ONE (15:46)
--- NOTE | 2016-12-13 16:03 | PCM.PN ---
- General Info Date of Service: 12/13/16 - Review of Systems Systems Review Comment:: taking po clear liquids no complaint of abdominal pain. - Patient Data Vitals - most recent: Last Vital Signs Temp 98.4 F 12/13/16 12:00 Pulse 99 12/13/16 12:00 Resp 18 12/13/16 12:00 BP 117/78 12/13/16 12:00 Pulse Ox 95 12/13/16 12:00 Weight - most recent: 65.952 kg I&O - last 24 hours: Intake & Output 12/13/16 12/13/16 12/13/16 06:59 14:59 22:59 Intake Total 1350 110 Output Total 350 Balance 1000 110 Lab Results last 24 hrs: Laboratory Results - last 24 hr 12/13/16 12/13/16 Range/Units 06:05 06:05 WBC 11.91 H (4.0-11.0) K/uL RBC 2.88 L (4.50-5.90) M/uL Hgb 9.0 L (13.0-17.0) g/dL Hct 28.6 L (38.0-50.0) % MCV 99.3 H (80.0-98.0) fL MCH 31.3 (27.0-32.0) pg MCHC 31.5 (31.0-37.0) g/dL RDW Std Deviation 48.9 (28.0-62.0) fl RDW Coeff of Shruthi 14 (11.0-15.0) % Plt Count 237 (150-400) K/uL MPV 11.00 (7.40-12.00) fL Neut % (Auto) 83.4 H (48.0-80.0) % Lymph % (Auto) 8.3 L (16.0-40.0) % [place] % (Auto) 7.8 (0.0-15.0) % Eos % (Auto) 0.3 (0.0-7.0) % Baso % (Auto) 0.2 (0.0-1.5) % Neut # 9.9 H (1.4-5.7) K/uL Lymph # 1.0 (0.6-2.4) K/uL [place] # 0.9 H (0.0-0.8) K/uL Eos # 0.0 (0.0-0.7) K/uL Baso # 0.0 (0.0-0.1) K/uL Sodium 139 (136-146) mmol/L Potassium 3.3 L (3.5-5.1) mmol/L Chloride 110 (98-110) mmol/L Carbon Dioxide 21 (21-31) mmol/L BUN 23 (6.0-23.0) mg/dL Creatinine 1.4 (0.6-1.5) mg/dL Est Cr Clr Drug Dosing 44.34 mL/min Estimated GFR (MDRD) 50.9 ml/min Glucose 110 (60-110) mg/dL Calcium 7.8 L (8.8-10.8) mg/dL Magnesium 1.6 (1.5-2.3) mEq/L Total Bilirubin 0.5 (0.1-1.5) mg/dL AST 14 (5-40) IU/L ALT 33 (8-54) IU/L Alkaline Phosphatase 61 (40-150) Total Protein 5.2 L (6.0-8.0) g/dL Albumin 2.7 L (3.4-4.8) g/dL Globulin 2.5 (2.0-3.5) g/dL Albumin/Globulin Ratio 1.1 L (1.3-2.8) Wilmer Results last 24 hrs: Microbiology 12/12/16 09:10 Clostridium difficile Toxin A&B (M) - Final Stool / Feces Negative for C.Diff Toxin/AG Med Orders - Current: Current Medications Acetaminophen (Tylenol) 650 mg PO Q4H PRN PRN Reason: Pain (Mild 1-3)/fever Piperacillin Sod/Tazobactam (Sod 2.25 gm/ Sodium Chloride) 50 mls @ 100 mls/hr IV Q6H [facility] Last Admin: 12/13/16 12:33 Dose: 100 mls/hr Lactated Ringer's (Ringers, Lactated) 1,000 mls @ 100 mls/hr IV ASDIRECTED [facility] Last Admin: 12/13/16 02:26 Dose: 100 mls/hr Metronidazole 500 mg/ Premix 100 mls @ 100 mls/hr IV Q6H [facility] Last Admin: 12/13/16 15:00 Dose: 100 mls/hr Pantoprazole Sodium 40 mg/ (Sodium Chloride) 10 mls @ 300 mls/hr IV Q12H [facility] Last Admin: 12/13/16 08:06 Dose: 300 mls/hr Ondansetron HCl (Zofran) 4 mg IVPUSH Q4H PRN PRN Reason: Nausea Discontinued Medications Sodium Chloride (Normal Saline) 1,000 mls @ 999 mls/hr IV .Bolus ONE Stop: 12/11/16 13:31 Last Admin: 12/11/16 12:40 Dose: 999 mls/hr Ciprofloxacin/Dextrose 400 mg/ (Premix) 200 mls @ 200 mls/hr IV Q12H [facility] Sodium Chloride (Normal Saline) 2,000 mls @ 999 mls/hr IV STAT ONE Stop: 12/11/16 17:57 Last Admin: 12/11/16 16:22 Dose: 999 mls/hr Metronidazole 500 mg/ Premix 100 mls @ 100 mls/hr IV ONETIME ONE Stop: 12/11/16 16:56 Last Admin: 12/11/16 16:22 Dose: 100 mls/hr Levofloxacin/Dextrose 750 mg/ (Premix) 150 mls @ 100 mls/hr IV ONETIME ONE Stop: 12/11/16 17:27 Last Admin: 12/11/16 18:08 Dose: 100 mls/hr Sodium Chloride (Normal Saline) 1,000 mls @ 125 mls/hr IV ASDIRECTED [facility] Last Admin: 12/11/16 20:13 Dose: 125 mls/hr Morphine Sulfate (Morphine) 2 mg IVPUSH Q2H PRN PRN Reason: Pain (severe 7-10) Stop: 12/12/16 17:56 Pantoprazole Sodium (Protonix Iv) 40 mg IV Q12HR [facility] Last Admin: 12/11/16 21:02 Dose: 40 mg Potassium Chloride (Klor-Con M20) 40 meq PO ONETIME ONE Stop: 12/13/16 15:47 - Exam General: alert, cooperative Lungs: Clear to auscultation, Normal respiratory effort Cardiovascular: regular rate, regular rhythm Abdomen: soft, no tenderness - Problem List & Annotations (1) Acute renal failure SNOMED Code(s): 62609848 Code(s): N17.9 - ACUTE KIDNEY FAILURE, UNSPECIFIED Status: Acute Current Visit: Yes (2) Sepsis SNOMED Code(s): 58235177 Code(s): A41.9 - SEPSIS, UNSPECIFIED ORGANISM Status: Acute Current Visit : Yes - Problem List Review Problem List Initiated/Reviewed/Updated: Yes - My Orders Last 24 Hours: My Active Orders 12/12/16 15:54 Transfer Patient (Change bed) [ADT] Routine 12/14/16 05:11 CBC WITH AUTO DIFF [HEME] AM COMPREHENSIVE METABOLIC PN,CMP [CHEM] AM MAGNESIUM [CHEM] AM - Plan Plan:: must consider sepsis see orders must consider possibility of bowel perforation but not definite Dr Wiggins consulting on case. 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 At this point he is marketly improved. his acute renal failure is improved as manifested by his serum creatinine level trending downward. Carl Mckee MD 12/13/2016 he reports flatus creatinine improving continue antibiotics possible advance diet tomorrow if OK with Dr WIGGINS possible discharge by Wednesday. He would like to consider [facility] to get his strength back. Carl Mckee MD
[2016-12-14] MEDS: Piperacillin/Tazobactam 2.25 GM in Sodium Chloride 0.9% 50 ML IV SCH ×4 (00:16→19:02)
[2016-12-14] MEDS: metroNIDAZOLE/Normal Saline 500 MG in Premix Bag 1 BAG IV SCH ×4 (02:21→19:46)
[2016-12-14] MEDS: Lactated Ringers 1,000 ML IV SCH (06:30)
[2016-12-14] MEDS: Pantoprazole 40 MG in Sodium Chloride 0.9% 10 ML IV SCH ×2 (08:57→21:25)
--- NOTE | 2016-12-14 10:55 | PCM.PN ---
- General Info Date of Service: 12/14/16 Admission Dx/Problem (Free Text): Abdominal pain, diarrhea Subjective Update: Feeling good today, Denies any abdominal pain, or chest pain. Intermittently SOB with cough. Still having some diarrhea. Abdominal binder in place to abdomen. Distension better. Functional Status: Reports: pain controlled, tolerating diet, ambulating, urinating - Review of Systems General: Reports: no symptoms. Denies: fever HEENT: Reports: no symptoms. Denies: sinus congestion, sore throat Pulmonary: Reports: shortness of breath ("little bit this morning" better now. ) , cough. Denies: sputum Cardiovascular: Reports: no symptoms. Denies: chest pain, palpitations, dyspnea on exertion, edema Gastrointestinal: Reports: Diarrhea. Denies: Abdominal pain, Nausea, Vomiting Genitourinary: Reports: no symptoms. Denies: dysuria, frequency, burning Musculoskeletal: Reports: no symptoms Skin: Reports: no symptoms Neurological: Reports: no symptoms Psychiatric: Reports: no symptoms - Patient Data Vitals - most recent: Last Vital Signs Temp 98.6 F 12/14/16 08:00 Pulse 70 12/14/16 08:00 Resp 20 12/14/16 08:00 BP 125/77 12/14/16 08:00 Pulse Ox 98 12/14/16 08:00 Weight - most recent: 66.5 kg I&O - last 24 hours: Intake & Output 12/13/16 12/14/16 12/14/16 22:59 06:59 14:59 Intake Total 1900 1199 Output Total 400 Balance 1500 1199 Lab Results last 24 hrs: Laboratory Results - last 24 hr 12/14/16 12/14/16 Range/Units 05:55 05:55 WBC 9.39 (4.0-11.0) K/uL RBC 2.85 L (4.50-5.90) M/uL Hgb 9.0 L (13.0-17.0) g/dL Hct 28.8 L (38.0-50.0) % MCV 101.1 H (80.0-98.0) fL MCH 31.6 (27.0-32.0) pg MCHC 31.3 (31.0-37.0) g/dL RDW Std Deviation 50.0 (28.0-62.0) fl RDW Coeff of Shruthi 14 (11.0-15.0) % Plt Count 258 (150-400) K/uL MPV 10.50 (7.40-12.00) fL Neut % (Auto) 78.1 (48.0-80.0) % Lymph % (Auto) 11.8 L (16.0-40.0) % [place] % (Auto) 8.9 (0.0-15.0) % Eos % (Auto) 0.9 (0.0-7.0) % Baso % (Auto) 0.3 (0.0-1.5) % Neut # 7.3 H (1.4-5.7) K/uL Lymph # 1.1 (0.6-2.4) K/uL [place] # 0.8 (0.0-0.8) K/uL Eos # 0.1 (0.0-0.7) K/uL Baso # 0.0 (0.0-0.1) K/uL Sodium 139 (136-146) mmol/L Potassium 3.9 (3.5-5.1) mmol/L Chloride 110 (98-110) mmol/L Carbon Dioxide 22 (21-31) mmol/L BUN 15 (6.0-23.0) mg/dL Creatinine 1.3 (0.6-1.5) mg/dL Est Cr Clr Drug Dosing 47.75 mL/min Estimated GFR (MDRD) 55.4 ml/min Glucose 103 (60-110) mg/dL Calcium 7.6 L (8.8-10.8) mg/dL Magnesium 1.6 (1.5-2.3) mEq/L Total Bilirubin 0.5 (0.1-1.5) mg/dL AST 13 (5-40) IU/L ALT 24 (8-54) IU/L Alkaline Phosphatase 53 (40-150) Total Protein 4.9 L (6.0-8.0) g/dL Albumin 2.5 L (3.4-4.8) g/dL Globulin 2.4 (2.0-3.5) g/dL Albumin/Globulin Ratio 1.0 L (1.3-2.8) Med Orders - Current: Current Medications Acetaminophen (Tylenol) 650 mg PO Q4H PRN PRN Reason: Pain (Mild 1-3)/fever Piperacillin Sod/Tazobactam (Sod 2.25 gm/ Sodium Chloride) 50 mls @ 100 mls/hr IV Q6H [facility] Last Admin: 12/14/16 05:25 Dose: 100 mls/hr Lactated Ringer's (Ringers, Lactated) 1,000 mls @ 100 mls/hr IV ASDIRECTED [facility] Last Admin: 12/14/16 06:30 Dose: 100 mls/hr Metronidazole 500 mg/ Premix 100 mls @ 100 mls/hr IV Q6H [facility] Last Admin: 12/14/16 08:06 Dose: 100 mls/hr Pantoprazole Sodium 40 mg/ (Sodium Chloride) 10 mls @ 300 mls/hr IV Q12H [facility] Last Admin: 12/14/16 08:57 Dose: 300 mls/hr Ondansetron HCl (Zofran) 4 mg IVPUSH Q4H PRN PRN Reason: Nausea Discontinued Medications Sodium Chloride (Normal Saline) 1,000 mls @ 999 mls/hr IV .Bolus ONE Stop: 12/11/16 13:31 Last Admin: 12/11/16 12:40 Dose: 999 mls/hr Ciprofloxacin/Dextrose 400 mg/ (Premix) 200 mls @ 200 mls/hr IV Q12H [facility] Sodium Chloride (Normal Saline) 2,000 mls @ 999 mls/hr IV STAT ONE Stop: 12/11/16 17:57 Last Admin: 12/11/16 16:22 Dose: 999 mls/hr Metronidazole 500 mg/ Premix 100 mls @ 100 mls/hr IV ONETIME ONE Stop: 12/11/16 16:56 Last Admin: 12/11/16 16:22 Dose: 100 mls/hr Levofloxacin/Dextrose 750 mg/ (Premix) 150 mls @ 100 mls/hr IV ONETIME ONE Stop: 12/11/16 17:27 Last Admin: 12/11/16 18:08 Dose: 100 mls/hr Sodium Chloride (Normal Saline) 1,000 mls @ 125 mls/hr IV ASDIRECTED [facility] Last Admin: 12/11/16 20:13 Dose: 125 mls/hr Morphine Sulfate (Morphine) 2 mg IVPUSH Q2H PRN PRN Reason: Pain (severe 7-10) Stop: 12/12/16 17:56 Pantoprazole Sodium (Protonix Iv) 40 mg IV Q12HR [facility] Last Admin: 12/11/16 21:02 Dose: 40 mg Potassium Chloride (Klor-Con M20) 40 meq PO ONETIME ONE Stop: 12/13/16 15:47 Last Admin: 12/13/16 16:46 Dose: 40 meq - Exam Quality Assessment: supplemental oxygen, DVT prophylaxis General: alert, oriented, cooperative HEENT: Pupils equal, Pupils reactive, EOMI, Mucous membr. moist/pink Neck: supple Lungs: Wheezing (scant wheezing throughout.) Cardiovascular: regular rate, regular rhythm, no murmurs Abdomen: bowel sounds present, soft, no tenderness, no distension Extremities: no edema, normal pulses, no tenderness/swelling Wound/Incisions: dressing dry and intact (abdoinal binder in place. Dr. Wiggins reports he will remove a couple lydia later today. ) Neurological: no new focal deficit Psy/Mental Status: alert, normal affect, normal mood - Problem List & Annotations (1) Abdominal pain SNOMED Code(s): 93398458 Code(s): R10.9 - UNSPECIFIED ABDOMINAL PAIN Status: Acute Current Visit: Yes (2) Acute renal failure SNOMED Code(s): 79845579 Code(s): N17.9 - ACUTE KIDNEY FAILURE, UNSPECIFIED Status: Resolved Current Visit: Yes (3) Sepsis SNOMED Code(s): 00061971 Code(s): A41.9 - SEPSIS, UNSPECIFIED ORGANISM Status: Resolved Current Visit: Yes (4) S/P exploratory laparotomy SNOMED Code(s): 875897676, 30336278, 152637650 Code(s): Z98.890 - OTHER SPECIFIED POSTPROCEDURAL STATES Status: Chronic Current Visit: No - Problem List Review Problem List Initiated/Reviewed/Updated: Yes - Plan Plan:: must consider sepsis see orders must consider possibility of bowel perforation but not definite Dr Wiggins consulting on case. 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 At this point he is marketly improved. his acute renal failure is improved as manifested by his serum creatinine level trending downward. Carl Mckee MD 12/13/2016 he reports flatus creatinine improving continue antibiotics possible advance diet tomorrow if OK with Dr WIGGINS possible discharge by Wednesday. He would like to consider [facility] to get his strength back. Carl Mckee MD 12/14/2016 1. S/p colon tear repair: Possibly had microperforation of colon with ileus. Leukocytosis improved today, 9,390. Passing flatus and having diarrhea today. Tolerating diet, Dr. Wiggins advancing to regular diet today. Abdominal incision still draining, culture returned skin kenneth. Abdominal binder in place. Continue Zosyn and Flagyl. BC negative. 2. Acute kidney injury: Improving, BUN15 Cr 1.3 today. Will stop IVFs and encourage PO intake. VTE: SCDs Dispo: Likely DC to [facility] in am for PT/OT Fouzia Butler [employer]
--- NOTE | 2016-12-14 11:02 | PCM.SURGPN ---
- General Info Date of Service: 12/14/16 - Review of Systems General: Reports: no symptoms (elizabeth full liquid, more flatus; no pain) Gastrointestinal: Reports: No symptoms - Patient Data Vitals - most recent: Last Vital Signs Temp 98.6 F 12/14/16 08:00 Pulse 70 12/14/16 08:00 Resp 20 12/14/16 08:00 BP 125/77 12/14/16 08:00 Pulse Ox 98 12/14/16 08:00 Weight - most recent: 146 lb 9.718 oz I&O - last 24 hours: Intake & Output 12/13/16 12/14/16 12/14/16 22:59 06:59 14:59 Intake Total 1900 1199 Output Total 400 Balance 1500 1199 Lab Results last 24 hrs: Laboratory Results - last 24 hr 12/14/16 12/14/16 Range/Units 05:55 05:55 WBC 9.39 (4.0-11.0) K/uL RBC 2.85 L (4.50-5.90) M/uL Hgb 9.0 L (13.0-17.0) g/dL Hct 28.8 L (38.0-50.0) % MCV 101.1 H (80.0-98.0) fL MCH 31.6 (27.0-32.0) pg MCHC 31.3 (31.0-37.0) g/dL RDW Std Deviation 50.0 (28.0-62.0) fl RDW Coeff of Shruthi 14 (11.0-15.0) % Plt Count 258 (150-400) K/uL MPV 10.50 (7.40-12.00) fL Neut % (Auto) 78.1 (48.0-80.0) % Lymph % (Auto) 11.8 L (16.0-40.0) % [place] % (Auto) 8.9 (0.0-15.0) % Eos % (Auto) 0.9 (0.0-7.0) % Baso % (Auto) 0.3 (0.0-1.5) % Neut # 7.3 H (1.4-5.7) K/uL Lymph # 1.1 (0.6-2.4) K/uL [place] # 0.8 (0.0-0.8) K/uL Eos # 0.1 (0.0-0.7) K/uL Baso # 0.0 (0.0-0.1) K/uL Sodium 139 (136-146) mmol/L Potassium 3.9 (3.5-5.1) mmol/L Chloride 110 (98-110) mmol/L Carbon Dioxide 22 (21-31) mmol/L BUN 15 (6.0-23.0) mg/dL Creatinine 1.3 (0.6-1.5) mg/dL Est Cr Clr Drug Dosing 47.75 mL/min Estimated GFR (MDRD) 55.4 ml/min Glucose 103 (60-110) mg/dL Calcium 7.6 L (8.8-10.8) mg/dL Magnesium 1.6 (1.5-2.3) mEq/L Total Bilirubin 0.5 (0.1-1.5) mg/dL AST 13 (5-40) IU/L ALT 24 (8-54) IU/L Alkaline Phosphatase 53 (40-150) Total Protein 4.9 L (6.0-8.0) g/dL Albumin 2.5 L (3.4-4.8) g/dL Globulin 2.4 (2.0-3.5) g/dL Albumin/Globulin Ratio 1.0 L (1.3-2.8) Med Orders - Current: Current Medications Acetaminophen (Tylenol) 650 mg PO Q4H PRN PRN Reason: Pain (Mild 1-3)/fever Piperacillin Sod/Tazobactam (Sod 2.25 gm/ Sodium Chloride) 50 mls @ 100 mls/hr IV Q6H [facility] Last Admin: 12/14/16 05:25 Dose: 100 mls/hr Lactated Ringer's (Ringers, Lactated) 1,000 mls @ 100 mls/hr IV ASDIRECTED [facility] Last Admin: 12/14/16 06:30 Dose: 100 mls/hr Metronidazole 500 mg/ Premix 100 mls @ 100 mls/hr IV Q6H [facility] Last Admin: 12/14/16 08:06 Dose: 100 mls/hr Pantoprazole Sodium 40 mg/ (Sodium Chloride) 10 mls @ 300 mls/hr IV Q12H [facility] Last Admin: 12/14/16 08:57 Dose: 300 mls/hr Ondansetron HCl (Zofran) 4 mg IVPUSH Q4H PRN PRN Reason: Nausea Discontinued Medications Sodium Chloride (Normal Saline) 1,000 mls @ 999 mls/hr IV .Bolus ONE Stop: 12/11/16 13:31 Last Admin: 12/11/16 12:40 Dose: 999 mls/hr Ciprofloxacin/Dextrose 400 mg/ (Premix) 200 mls @ 200 mls/hr IV Q12H [facility] Sodium Chloride (Normal Saline) 2,000 mls @ 999 mls/hr IV STAT ONE Stop: 12/11/16 17:57 Last Admin: 12/11/16 16:22 Dose: 999 mls/hr Metronidazole 500 mg/ Premix 100 mls @ 100 mls/hr IV ONETIME ONE Stop: 12/11/16 16:56 Last Admin: 12/11/16 16:22 Dose: 100 mls/hr Levofloxacin/Dextrose 750 mg/ (Premix) 150 mls @ 100 mls/hr IV ONETIME ONE Stop: 12/11/16 17:27 Last Admin: 12/11/16 18:08 Dose: 100 mls/hr Sodium Chloride (Normal Saline) 1,000 mls @ 125 mls/hr IV ASDIRECTED [facility] Last Admin: 12/11/16 20:13 Dose: 125 mls/hr Morphine Sulfate (Morphine) 2 mg IVPUSH Q2H PRN PRN Reason: Pain (severe 7-10) Stop: 12/12/16 17:56 Pantoprazole Sodium (Protonix Iv) 40 mg IV Q12HR [facility] Last Admin: 12/11/16 21:02 Dose: 40 mg Potassium Chloride (Klor-Con M20) 40 meq PO ONETIME ONE Stop: 12/13/16 15:47 Last Admin: 12/13/16 16:46 Dose: 40 meq - Exam Abdomen: soft, no tenderness (wound still sipping from umb, will continue monitoring, clear serosanguinous), no distension - Problem List Review Problem List Initiated/Reviewed/Updated: Yes - My Orders Last 24 Hours: Active Orders 24 hr Category Date Time Status Dressing Change [Wound Care] [RC] DAILY Care 12/14/16 09:53 Active Full Liquid Diet [DIET] Diet 12/13/16 Dinner Active Regular Diet [DIET] Diet 12/14/16 Lunch Active Medication Orders Acetaminophen (Tylenol) 650 mg PO Q4H PRN PRN Reason: Pain (Mild 1-3)/fever Piperacillin Sod/Tazobactam (Sod 2.25 gm/ Sodium Chloride) 50 mls @ 100 mls/hr IV Q6H [facility] Last Admin: 12/14/16 05:25 Dose: 100 mls/hr Infusion: 12/14/16 00:46 Dose: 100 mls/hr Admin: 12/14/16 00:16 Dose: 100 mls/hr Infusion: 12/13/16 19:22 Dose: 100 mls/hr Admin: 12/13/16 18:52 Dose: 100 mls/hr Infusion: 12/13/16 13:03 Dose: 100 mls/hr Admin: 12/13/16 12:33 Dose: 100 mls/hr Infusion: 12/13/16 06:58 Dose: 100 mls/hr Admin: 12/13/16 06:28 Dose: 100 mls/hr Infusion: 12/13/16 00:55 Dose: 100 mls/hr Admin: 12/13/16 00:25 Dose: 100 mls/hr Infusion: 12/12/16 18:30 Dose: 100 mls/hr Admin: 12/12/16 18:00 Dose: 100 mls/hr Infusion: 12/12/16 12:29 Dose: 100 mls/hr Admin: 12/12/16 11:59 Dose: 100 mls/hr Infusion: 12/12/16 06:07 Dose: 100 mls/hr Admin: 12/12/16 05:37 Dose: 100 mls/hr Infusion: 12/12/16 00:42 Dose: 100 mls/hr Admin: 12/12/16 00:12 Dose: 100 mls/hr Infusion: 12/11/16 20:41 Dose: 100 mls/hr Admin: 12/11/16 20:11 Dose: 100 mls/hr Lactated Ringer's (Ringers, Lactated) 1,000 mls @ 100 mls/hr IV ASDIRECTED [facility] Last Admin: 12/14/16 06:30 Dose: 100 mls/hr Infusion: 12/14/16 02:47 Dose: 100 mls/hr Admin: 12/13/16 16:47 Dose: 100 mls/hr Infusion: 12/13/16 12:26 Dose: 100 mls/hr Admin: 12/13/16 02:26 Dose: 100 mls/hr Infusion: 12/13/16 01:03 Dose: 100 mls/hr Infusion: 12/12/16 17:54 Dose: 100 mls/hr Admin: 12/12/16 15:37 Dose: 125 mls/hr Infusion: 12/12/16 12:25 Dose: 125 mls/hr Infusion: 12/12/16 07:49 Dose: 125 mls/hr Admin: 12/12/16 04:59 Dose: 150 mls/hr Infusion: 12/12/16 03:06 Dose: 150 mls/hr Admin: 12/11/16 20:25 Dose: 150 mls/hr Metronidazole 500 mg/ Premix 100 mls @ 100 mls/hr IV Q6H [facility] Last Admin: 12/14/16 08:06 Dose: 100 mls/hr Infusion: 12/14/16 03:21 Dose: 100 mls/hr Admin: 12/14/16 02:21 Dose: 100 mls/hr Infusion: 12/13/16 21:29 Dose: 100 mls/hr Admin: 12/13/16 20:29 Dose: 100 mls/hr Infusion: 12/13/16 16:00 Dose: 100 mls/hr Admin: 12/13/16 15:00 Dose: 100 mls/hr Infusion: 12/13/16 09:20 Dose: 100 mls/hr Admin: 12/13/16 08:20 Dose: 100 mls/hr Infusion: 12/13/16 03:23 Dose: 100 mls/hr Admin: 12/13/16 02:23 Dose: 100 mls/hr Infusion: 12/12/16 22:07 Dose: 100 mls/hr Admin: 12/12/16 21:07 Dose: 100 mls/hr Infusion: 12/12/16 14:51 Dose: 100 mls/hr Admin: 12/12/16 13:51 Dose: 100 mls/hr Infusion: 12/12/16 09:15 Dose: 100 mls/hr Admin: 12/12/16 08:15 Dose: 100 mls/hr Infusion: 12/12/16 03:12 Dose: 100 mls/hr Admin: 12/12/16 02:12 Dose: 100 mls/hr Infusion: 12/11/16 22:01 Dose: 100 mls/hr Admin: 12/11/16 21:01 Dose: 100 mls/hr Pantoprazole Sodium 40 mg/ (Sodium Chloride) 10 mls @ 300 mls/hr IV Q12H [facility] Last Admin: 12/14/16 08:57 Dose: 300 mls/hr Infusion: 12/13/16 20:29 Dose: 300 mls/hr Admin: 12/13/16 20:27 Dose: 300 mls/hr Infusion: 12/13/16 08:08 Dose: 300 mls/hr Admin: 12/13/16 08:06 Dose: 300 mls/hr Infusion: 12/12/16 21:07 Dose: 300 mls/hr Admin: 12/12/16 21:05 Dose: 300 mls/hr Infusion: 12/12/16 09:21 Dose: 300 mls/hr Admin: 12/12/16 09:19 Dose: 300 mls/hr Ondansetron HCl (Zofran) 4 mg IVPUSH Q4H PRN PRN Reason: Nausea - Assessment Assessment (Free Text/Narrative):: doing well, advance diet, likely dc to [facility] tomorrow, as pt is mentally challenged, and live by self; - Plan Plan (Free Text/Narrative):: doing well, advance diet, likely dc to [facility] tomorrow, as pt is mentally challenged, and live by self;
--- NOTE | 2016-12-14 15:06 | CR ---
EXAM DATE: 12/11/16 PATIENT'S AGE: 66 Patient: JOSE VEGAS Facility: [place], [place] Site . Site : 1950 Study: XRay Abdomen [id number] 6:17:46 PM Ordering Physician: Rafi Henry Final Report: HISTORY: NG tube placement. FINDINGS: A single supine radiograph abdomen demonstrates NG tube in place with the tip in the fundus of the stomach. The side hole is at the GE junction. Skin lydia seen along the midline. There is gaseous distention of small bowel loops distended to 5.1 cm. IMPRESSION: 1. The tip of the NG tube is in the fundus of stomach. The side hole is right at the GE junction. Consider advancing the NG tube 2-3 cm. 2. Dilated small bowel. Dictated by Rachel Espinosa MD @ 12/11/2016 6:41:04 PM Dictated by: Rachel Espinosa MD @ 12/11/2016 18:41:08 (Electronic Signature) Report Signed by Proxy and Original Signed Document filed in the Medical Record. MTDD
[2016-12-15] MEDS: Piperacillin/Tazobactam 2.25 GM in Sodium Chloride 0.9% 50 ML IV SCH ×2 (00:07→05:33)
[2016-12-15] MEDS: metroNIDAZOLE/Normal Saline 500 MG in Premix Bag 1 BAG IV SCH ×3 (02:21→18:11)
[2016-12-15 06:05] LABS: CHLORIDE,CL 112 mmol/L (98-110); SODIUM,NA 141 mmol/L (136-146)
--- NOTE | 2016-12-15 08:46 | PCM.SURGPN ---
- General Info Date of Service: 12/15/16 - Review of Systems General: Reports: no symptoms Gastrointestinal: Reports: No symptoms (elizabeth po; wound vac is on) - Patient Data Vitals - most recent: Last Vital Signs Temp 98.3 F 12/15/16 08:00 Pulse 101 H 12/15/16 08:00 Resp 20 12/15/16 08:00 BP 114/65 12/15/16 08:00 Pulse Ox 93 L 12/15/16 08:00 Weight - most recent: 144 lb 6.444 oz I&O - last 24 hours: Intake & Output 12/14/16 12/15/16 12/15/16 22:59 06:59 14:59 Intake Total 210 150 Balance 210 150 Lab Results last 24 hrs: Laboratory Results - last 24 hr 12/15/16 12/15/16 Range/Units 04:42 04:42 WBC 7.21 (4.0-11.0) K/uL RBC 3.06 L (4.50-5.90) M/uL Hgb 9.4 L (13.0-17.0) g/dL Hct 29.8 L (38.0-50.0) % MCV 97.4 (80.0-98.0) fL MCH 30.7 (27.0-32.0) pg MCHC 31.5 (31.0-37.0) g/dL RDW Std Deviation 51.1 (28.0-62.0) fl RDW Coeff of Shruthi 14 (11.0-15.0) % Plt Count 267 (150-400) K/uL MPV 10.10 (7.40-12.00) fL Neut % (Auto) 75.2 (48.0-80.0) % Lymph % (Auto) 11.5 L (16.0-40.0) % [place] % (Auto) 11.1 (0.0-15.0) % Eos % (Auto) 2.1 (0.0-7.0) % Baso % (Auto) 0.1 (0.0-1.5) % Neut # 5.4 (1.4-5.7) K/uL Lymph # 0.8 (0.6-2.4) K/uL [place] # 0.8 (0.0-0.8) K/uL Eos # 0.2 (0.0-0.7) K/uL Baso # 0.0 (0.0-0.1) K/uL Nucleated RBC % 0.0 /100WBC Nucleated RBCs # 0 K/uL Sodium 141 (136-146) mmol/L Potassium 3.7 (3.5-5.1) mmol/L Chloride 112 H (98-110) mmol/L Carbon Dioxide 21 (21-31) mmol/L BUN 13 (6.0-23.0) mg/dL Creatinine 1.2 (0.6-1.5) mg/dL Est Cr Clr Drug Dosing 51.73 mL/min Estimated GFR (MDRD) > 60.0 ml/min Glucose 99 (60-110) mg/dL Calcium 7.3 L (8.8-10.8) mg/dL Med Orders - Current: Current Medications Acetaminophen (Tylenol) 650 mg PO Q4H PRN PRN Reason: Pain (Mild 1-3)/fever Ondansetron HCl (Zofran) 4 mg IVPUSH Q4H PRN PRN Reason: Nausea Discontinued Medications Sodium Chloride (Normal Saline) 1,000 mls @ 999 mls/hr IV .Bolus ONE Stop: 12/11/16 13:31 Last Admin: 12/11/16 12:40 Dose: 999 mls/hr Ciprofloxacin/Dextrose 400 mg/ (Premix) 200 mls @ 200 mls/hr IV Q12H [facility] Sodium Chloride (Normal Saline) 2,000 mls @ 999 mls/hr IV STAT ONE Stop: 12/11/16 17:57 Last Admin: 12/11/16 16:22 Dose: 999 mls/hr Metronidazole 500 mg/ Premix 100 mls @ 100 mls/hr IV ONETIME ONE Stop: 12/11/16 16:56 Last Admin: 12/11/16 16:22 Dose: 100 mls/hr Levofloxacin/Dextrose 750 mg/ (Premix) 150 mls @ 100 mls/hr IV ONETIME ONE Stop: 12/11/16 17:27 Last Admin: 12/11/16 18:08 Dose: 100 mls/hr Piperacillin Sod/Tazobactam (Sod 2.25 gm/ Sodium Chloride) 50 mls @ 100 mls/hr IV Q6H [facility] Last Admin: 12/15/16 05:33 Dose: 100 mls/hr Sodium Chloride (Normal Saline) 1,000 mls @ 125 mls/hr IV ASDIRECTED [facility] Last Admin: 12/11/16 20:13 Dose: 125 mls/hr Lactated Ringer's (Ringers, Lactated) 1,000 mls @ 100 mls/hr IV ASDIRECTED [facility] Last Admin: 12/14/16 06:30 Dose: 100 mls/hr Metronidazole 500 mg/ Premix 100 mls @ 100 mls/hr IV Q6H [facility] Last Admin: 12/15/16 02:21 Dose: 100 mls/hr Pantoprazole Sodium 40 mg/ (Sodium Chloride) 10 mls @ 300 mls/hr IV Q12H [facility] Last Admin: 12/14/16 21:25 Dose: 300 mls/hr Piperacillin Sod/Tazobactam (Sod 3.375 gm/ Sodium Chloride) 50 mls @ 100 mls/ hr IV Q6H [facility] Morphine Sulfate (Morphine) 2 mg IVPUSH Q2H PRN PRN Reason: Pain (severe 7-10) Stop: 12/12/16 17:56 Pantoprazole Sodium (Protonix Iv) 40 mg IV Q12HR [facility] Last Admin: 12/11/16 21:02 Dose: 40 mg Potassium Chloride (Klor-Con M20) 40 meq PO ONETIME ONE Stop: 12/13/16 15:47 Last Admin: 12/13/16 16:46 Dose: 40 meq - Exam Abdomen: soft, no tenderness, no distension - Problem List Review Problem List Initiated/Reviewed/Updated: Yes - My Orders Last 24 Hours: Active Orders 24 hr Category Date Time Status Dressing Change [Wound Care] [RC] DAILY Care 12/14/16 09:53 Active Regular Diet [DIET] Diet 12/14/16 Lunch Active Wound Vac Management [OM.PC] Routine Oth 12/14/16 11:20 Ordered Medication Orders Acetaminophen (Tylenol) 650 mg PO Q4H PRN PRN Reason: Pain (Mild 1-3)/fever Ondansetron HCl (Zofran) 4 mg IVPUSH Q4H PRN PRN Reason: Nausea - Assessment Assessment (Free Text/Narrative):: doing well, stop abx; wound vac is on; ok to dc to SNF when wound vac available ; fu 1 wk - Plan Plan (Free Text/Narrative):: doing well, stop abx; wound vac is on; ok to dc to SNF when wound vac available ; fu 1 wk
[2016-12-15] MEDS ORDERED: Calcium Carbonate 500 MG Tab.Chew PO ONE (10:46)
--- NOTE | 2016-12-15 10:50 | PCM.PN ---
- General Info Date of Service: 12/15/16 Admission Dx/Problem (Free Text): Abdominal pain, diarrhea Subjective Update: Doing ok today, coughing up white clear phlegm. Has no chest pain or SOB complaints. Denies abdominal pain. Nursing noted he dropped to mid 70s ambulating and was placed to 4 L NC and returned to 90s. Functional Status: Reports: pain controlled, tolerating diet, ambulating, urinating - Review of Systems General: Reports: no symptoms. Denies: fever HEENT: Reports: no symptoms. Denies: sinus congestion, sore throat Pulmonary: Reports: shortness of breath (with walking "but i have to push alot" talking about IV pole), cough, sputum (white/clear phlem) Cardiovascular: Reports: no symptoms. Denies: chest pain, edema Gastrointestinal: Reports: No symptoms. Denies: Abdominal pain, Nausea, Vomiting Genitourinary: Reports: no symptoms. Denies: dysuria, frequency, burning Musculoskeletal: Reports: no symptoms - Patient Data Vitals - most recent: Last Vital Signs Temp 98.3 F 12/15/16 08:00 Pulse 101 H 12/15/16 08:00 Resp 20 12/15/16 08:00 BP 114/65 12/15/16 08:00 Pulse Ox 93 L 12/15/16 08:00 Weight - most recent: 65.5 kg I&O - last 24 hours: Intake & Output 12/14/16 12/15/16 12/15/16 22:59 06:59 14:59 Intake Total 210 150 Balance 210 150 Lab Results last 24 hrs: Laboratory Results - last 24 hr 12/15/16 12/15/16 Range/Units 04:42 04:42 WBC 7.21 (4.0-11.0) K/uL RBC 3.06 L (4.50-5.90) M/uL Hgb 9.4 L (13.0-17.0) g/dL Hct 29.8 L (38.0-50.0) % MCV 97.4 (80.0-98.0) fL MCH 30.7 (27.0-32.0) pg MCHC 31.5 (31.0-37.0) g/dL RDW Std Deviation 51.1 (28.0-62.0) fl RDW Coeff of Shruthi 14 (11.0-15.0) % Plt Count 267 (150-400) K/uL MPV 10.10 (7.40-12.00) fL Neut % (Auto) 75.2 (48.0-80.0) % Lymph % (Auto) 11.5 L (16.0-40.0) % [place] % (Auto) 11.1 (0.0-15.0) % Eos % (Auto) 2.1 (0.0-7.0) % Baso % (Auto) 0.1 (0.0-1.5) % Neut # 5.4 (1.4-5.7) K/uL Lymph # 0.8 (0.6-2.4) K/uL [place] # 0.8 (0.0-0.8) K/uL Eos # 0.2 (0.0-0.7) K/uL Baso # 0.0 (0.0-0.1) K/uL Nucleated RBC % 0.0 /100WBC Nucleated RBCs # 0 K/uL Sodium 141 (136-146) mmol/L Potassium 3.7 (3.5-5.1) mmol/L Chloride 112 H (98-110) mmol/L Carbon Dioxide 21 (21-31) mmol/L BUN 13 (6.0-23.0) mg/dL Creatinine 1.2 (0.6-1.5) mg/dL Est Cr Clr Drug Dosing 51.73 mL/min Estimated GFR (MDRD) > 60.0 ml/min Glucose 99 (60-110) mg/dL Calcium 7.3 L (8.8-10.8) mg/dL Med Orders - Current: Current Medications Acetaminophen (Tylenol) 650 mg PO Q4H PRN PRN Reason: Pain (Mild 1-3)/fever Calcium Carbonate/Glycine (Tums) 1,000 mg PO ONETIME ONE Stop: 12/15/16 10:47 Ondansetron HCl (Zofran) 4 mg IVPUSH Q4H PRN PRN Reason: Nausea Discontinued Medications Sodium Chloride (Normal Saline) 1,000 mls @ 999 mls/hr IV .Bolus ONE Stop: 12/11/16 13:31 Last Admin: 12/11/16 12:40 Dose: 999 mls/hr Ciprofloxacin/Dextrose 400 mg/ (Premix) 200 mls @ 200 mls/hr IV Q12H [facility] Sodium Chloride (Normal Saline) 2,000 mls @ 999 mls/hr IV STAT ONE Stop: 12/11/16 17:57 Last Admin: 12/11/16 16:22 Dose: 999 mls/hr Metronidazole 500 mg/ Premix 100 mls @ 100 mls/hr IV ONETIME ONE Stop: 12/11/16 16:56 Last Admin: 12/11/16 16:22 Dose: 100 mls/hr Levofloxacin/Dextrose 750 mg/ (Premix) 150 mls @ 100 mls/hr IV ONETIME ONE Stop: 12/11/16 17:27 Last Admin: 12/11/16 18:08 Dose: 100 mls/hr Piperacillin Sod/Tazobactam (Sod 2.25 gm/ Sodium Chloride) 50 mls @ 100 mls/hr IV Q6H [facility] Last Admin: 12/15/16 05:33 Dose: 100 mls/hr Sodium Chloride (Normal Saline) 1,000 mls @ 125 mls/hr IV ASDIRECTED [facility] Last Admin: 12/11/16 20:13 Dose: 125 mls/hr Lactated Ringer's (Ringers, Lactated) 1,000 mls @ 100 mls/hr IV ASDIRECTED [facility] Last Admin: 12/14/16 06:30 Dose: 100 mls/hr Metronidazole 500 mg/ Premix 100 mls @ 100 mls/hr IV Q6H [facility] Last Admin: 12/15/16 02:21 Dose: 100 mls/hr Pantoprazole Sodium 40 mg/ (Sodium Chloride) 10 mls @ 300 mls/hr IV Q12H [facility] Last Admin: 12/14/16 21:25 Dose: 300 mls/hr Piperacillin Sod/Tazobactam (Sod 3.375 gm/ Sodium Chloride) 50 mls @ 100 mls/ hr IV Q6H [facility] Morphine Sulfate (Morphine) 2 mg IVPUSH Q2H PRN PRN Reason: Pain (severe 7-10) Stop: 12/12/16 17:56 Pantoprazole Sodium (Protonix Iv) 40 mg IV Q12HR [facility] Last Admin: 12/11/16 21:02 Dose: 40 mg Potassium Chloride (Klor-Con M20) 40 meq PO ONETIME ONE Stop: 12/13/16 15:47 Last Admin: 12/13/16 16:46 Dose: 40 meq - Exam Quality Assessment: supplemental oxygen, DVT prophylaxis General: alert, oriented, cooperative Neck: supple Lungs: Clear to auscultation, Normal respiratory effort Cardiovascular: regular rate, regular rhythm Abdomen: bowel sounds present, soft, no tenderness, no distension, other ( abdominal binder intact.) Extremities: normal pulses, no tenderness/swelling, no calf tenderness Wound/Incisions: dressing dry and intact (wound vac in place. ) Neurological: no new focal deficit Psy/Mental Status: alert, normal affect, normal mood - Problem List & Annotations (1) Abdominal pain SNOMED Code(s): 47938123 Code(s): R10.9 - UNSPECIFIED ABDOMINAL PAIN Status: Acute Current Visit: Yes (2) Acute renal failure SNOMED Code(s): 08772956 Code(s): N17.9 - ACUTE KIDNEY FAILURE, UNSPECIFIED Status: Resolved Current Visit: Yes (3) Sepsis SNOMED Code(s): 10715179 Code(s): A41.9 - SEPSIS, UNSPECIFIED ORGANISM Status: Resolved Current Visit: Yes (4) S/P exploratory laparotomy SNOMED Code(s): 932160300, 01035372, 681086326 Code(s): Z98.890 - OTHER SPECIFIED POSTPROCEDURAL STATES Status: Chronic Current Visit: No - Problem List Review Problem List Initiated/Reviewed/Updated: Yes - My Orders Last 24 Hours: My Active Orders 12/15/16 10:46 Chest 2V [CR] Routine Calcium Carbonate [Tums] 1,000 mg PO ONETIME ONE 12/15/16 11:00 Ciprofloxacin in D5W [Cipro in D5W 400 MG/200 ML] 400 mg Premix Bag 1 bag IV Q12H 12/15/16 12:00 metroNIDAZOLE/Normal Saline [Flagyl 500 MG in NS 100 ML] 500 mg Premix Bag 1 bag IV QID - Plan Plan:: must consider sepsis see orders must consider possibility of bowel perforation but not definite Dr Wiggins consulting on case. 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 At this point he is marketly improved. his acute renal failure is improved as manifested by his serum creatinine level trending downward. Carl Mckee MD 12/13/2016 he reports flatus creatinine improving continue antibiotics possible advance diet tomorrow if OK with Dr WIGGINS possible discharge by Wednesday. He would like to consider [facility] to get his strength back. Carl Mckee MD 12/14/2016 1. S/p colon tear repair: Possibly had microperforation of colon with ileus. Leukocytosis improved today, 9,390. Passing flatus and having diarrhea today. Tolerating diet, Dr. Wiggins advancing to regular diet today. Abdominal incision still draining, culture returned skin kenneth. Abdominal binder in place. Continue Zosyn and Flagyl. BC negative. 2. Acute kidney injury: Improving, BUN 15 Cr 1.3 today. Will stop IVFs and encourage PO intake. VTE: SCDs Dispo: Likely DC to [facility] in [facility] for PT/OT [facility] PERDUE 12/15/2016 1. S/p colon tear repair: Possibly had microperforation of colon with ileus. Leukocytosis continues to improve, 7,000. Passing flatus and having diarrhea today. Tolerating Regular diet. Wound Vac placed per Dr. Wiggins and is draining. Culture returned skin kenneth. Abdominal binder in place. Due to sepsis upon admission will continue Ciprofloxacin and Flagyl for a total of 14 days. BC remain negative. 2. Acute kidney injury: Improving, BUN 13 Cr 1.2 today. Encourage PO intake. 3. Hypoxia: increased need oxygen needs. Will obtain CXR. LS clear and coughing up clear phlegm intermittently. Encourage IS. VTE: SCDs Dispo: DC to [facility] when wound vac is available at [facility] for patient use. [facility] PERDUE
[2016-12-15] MEDS ORDERED: Piperacillin/Tazobactam 3.375 GM in Sodium Chloride 0.9% 50 ML IV SCH (12:00)
[2016-12-15] MEDS: Ciprofloxacin in D5W 400 MG in Premix Bag 1 BAG IV SCH ×4 (12:00→23:08)
--- NOTE | 2016-12-15 12:26 | CR ---
EXAMINATION: Two-view chest (PA and Lateral views). HISTORY: Hypoxia. FINDINGS: The trachea is midline. The cardiomediastinal silhouette is within normal limits. There is mild biba silar atelectasis. No definite pleural effusion or pneumothorax. Degenerative changes noted at the AC joints bilaterally. IMPRESSION: Mild bibasilar atelectasis.
[2016-12-16] MEDS: metroNIDAZOLE/Normal Saline 500 MG in Premix Bag 1 BAG IV SCH ×3 (00:37→12:29)
[2016-12-16 05:14] LABS: CHLORIDE,CL 108 mmol/L (98-110); SODIUM,NA 138 mmol/L (136-146)
[2016-12-16] MEDS: Ciprofloxacin in D5W 400 MG in Premix Bag 1 BAG IV SCH ×2 (11:10)
[2016-12-16 11:29] VITALS: BP 121/92
--- NOTE | 2016-12-16 12:07 | PCM.DCSUM1 ---
Discharge Summary - Discharge Data Discharge Date: 12/16/16 Discharge Disposition: DC/Tfer to SNF 03 Condition: Good - Discharge Diagnosis/Problem(s) (1) Abdominal pain SNOMED Code(s): 14219973 ICD Code: R10.9 - UNSPECIFIED ABDOMINAL PAIN Status: Acute Current Visit : Yes (2) Acute renal failure SNOMED Code(s): 96959704 ICD Code: N17.9 - ACUTE KIDNEY FAILURE, UNSPECIFIED Status: Resolved Current Visit: Yes (3) Sepsis SNOMED Code(s): 40111287 ICD Code: A41.9 - SEPSIS, UNSPECIFIED ORGANISM Status: Resolved Current Visit: Yes (4) S/P exploratory laparotomy SNOMED Code(s): 028933773, 38265238, 688810010 ICD Code: Z98.890 - OTHER SPECIFIED POSTPROCEDURAL STATES Status: Chronic Current Visit: No - Patient Summary/Data Operative Procedure(s) Performed: 1) exploratory laparotomy. 2) repair of colon tear Consults: Consultations 12/11/16 17:55 Consult to Physician [CONS] Routine - Patient Instructions Diet: Regular Diet as Tolerated Activity: As Tolerated, Cough & Deep Breathe (IS) Showering/Bathing: No Tub Bathing/Swimming Notify Provider of: Fever, Increased Pain, Swelling and Redness, Drainage, Nausea and/or Vomiting Other/Special Instructions: PT/OT to evaluate and treat. Wound Vac orders per Dr. Wiggins. - Discharge Plan Prescriptions/Med Rec: Acetaminophen/HYDROcodone [Phyllis 325-5 MG] 1 tab PO Q4H PRN #15 tablet PRN Reason: Pain Ciprofloxacin [Ciprofloxacin HCl] 500 mg PO BID #20 tablet metroNIDAZOLE [Flagyl] 500 mg PO Q8H #30 tablet Home Medications: Home Meds Acetaminophen [Tylenol] 325 mg PO Q4H PRN 02/01/14 [History] Aspirin [Colten Chewable Aspirin] 81 mg PO DAILY 02/01/14 [History] Ranitidine HCl [Zantac] 150 mg PO DAILY PRN 11/30/16 [History] Acetaminophen/HYDROcodone [Phyllis 325-5 MG] 1 tab PO Q4H PRN #15 tablet 12/16/16 [Rx] Ciprofloxacin [Ciprofloxacin HCl] 500 mg PO BID #20 tablet 12/16/16 [Rx] metroNIDAZOLE [Flagyl] 500 mg PO Q8H #30 tablet 12/16/16 [Rx] Referrals: Gregor Wiggins MD [Physician] - 12/23/16 9:30 am King Nuñez MD [Physician] - 12/17/16 (Follow up next Fred Rounds) - Patient Data Vitals - Most Recent: Last Vital Signs Temp 98.2 F 12/16/16 11:28 Pulse 104 H 12/16/16 11:28 Resp 20 12/16/16 11:28 BP 121/92 H 12/16/16 11:28 Pulse Ox 91 L 12/16/16 11:28 Weight - Most Recent: 66.6 kg I&O - Last 24 hours: Intake & Output 12/15/16 12/16/16 12/16/16 22:59 06:59 14:59 Intake Total 640 440 Output Total 400 625 10 Balance 240 -185 -10 Lab Results - Last 24 hrs: Laboratory Results - last 24 hr 12/16/16 12/16/16 Range/Units 04:36 04:36 WBC 7.72 (4.0-11.0) K/uL RBC 3.14 L (4.50-5.90) M/uL Hgb 9.7 L (13.0-17.0) g/dL Hct 29.9 L (38.0-50.0) % MCV 95.2 (80.0-98.0) fL MCH 30.9 (27.0-32.0) pg MCHC 32.4 (31.0-37.0) g/dL RDW Std Deviation 50.0 (28.0-62.0) fl RDW Coeff of Shruthi 14 (11.0-15.0) % Plt Count 285 (150-400) K/uL MPV 9.80 (7.40-12.00) fL Neut % (Auto) 75.2 (48.0-80.0) % Lymph % (Auto) 11.5 L (16.0-40.0) % [place] % (Auto) 11.7 (0.0-15.0) % Eos % (Auto) 1.3 (0.0-7.0) % Baso % (Auto) 0.3 (0.0-1.5) % Neut # 5.8 H (1.4-5.7) K/uL Lymph # 0.9 (0.6-2.4) K/uL [place] # 0.9 H (0.0-0.8) K/uL Eos # 0.1 (0.0-0.7) K/uL Baso # 0.0 (0.0-0.1) K/uL Nucleated RBC % 0.0 /100WBC Nucleated RBCs # 0 K/uL Sodium 138 (136-146) mmol/L Potassium 3.6 (3.5-5.1) mmol/L Chloride 108 (98-110) mmol/L Carbon Dioxide 23 (21-31) mmol/L BUN 12 (6.0-23.0) mg/dL Creatinine 1.1 (0.6-1.5) mg/dL Est Cr Clr Drug Dosing 56.44 mL/min Estimated GFR (MDRD) > 60.0 ml/min Glucose 119 H (60-110) mg/dL Calcium 7.4 L (8.8-10.8) mg/dL Magnesium 2.0 (1.5-2.3) mEq/L Med Orders - Current: Current Medications Acetaminophen (Tylenol) 650 mg PO Q4H PRN PRN Reason: Pain (Mild 1-3)/fever Ciprofloxacin/Dextrose 400 mg/ (Premix) 200 mls @ 200 mls/hr IV Q12H [facility] Last Admin: 12/16/16 11:10 Dose: 200 mls/hr Metronidazole 500 mg/ Premix 100 mls @ 100 mls/hr IV QID [facility] Last Admin: 12/16/16 05:05 Dose: 100 mls/hr Ondansetron HCl (Zofran) 4 mg IVPUSH Q4H PRN PRN Reason: Nausea Discontinued Medications Calcium Carbonate/Glycine (Tums) 1,000 mg PO ONETIME ONE Stop: 12/15/16 10:47 Last Admin: 12/15/16 11:54 Dose: 1,000 mg Sodium Chloride (Normal Saline) 1,000 mls @ 999 mls/hr IV .Bolus ONE Stop: 12/11/16 13:31 Last Admin: 12/11/16 12:40 Dose: 999 mls/hr Ciprofloxacin/Dextrose 400 mg/ (Premix) 200 mls @ 200 mls/hr IV Q12H [facility] Sodium Chloride (Normal Saline) 2,000 mls @ 999 mls/hr IV STAT ONE Stop: 12/11/16 17:57 Last Admin: 12/11/16 16:22 Dose: 999 mls/hr Metronidazole 500 mg/ Premix 100 mls @ 100 mls/hr IV ONETIME ONE Stop: 12/11/16 16:56 Last Admin: 12/11/16 16:22 Dose: 100 mls/hr Levofloxacin/Dextrose 750 mg/ (Premix) 150 mls @ 100 mls/hr IV ONETIME ONE Stop: 12/11/16 17:27 Last Admin: 12/11/16 18:08 Dose: 100 mls/hr Piperacillin Sod/Tazobactam (Sod 2.25 gm/ Sodium Chloride) 50 mls @ 100 mls/hr IV Q6H [facility] Last Admin: 12/15/16 05:33 Dose: 100 mls/hr Sodium Chloride (Normal Saline) 1,000 mls @ 125 mls/hr IV ASDIRECTED [facility] Last Admin: 12/11/16 20:13 Dose: 125 mls/hr Lactated Ringer's (Ringers, Lactated) 1,000 mls @ 100 mls/hr IV ASDIRECTED [facility] Last Admin: 12/14/16 06:30 Dose: 100 mls/hr Metronidazole 500 mg/ Premix 100 mls @ 100 mls/hr IV Q6H [facility] Last Admin: 12/15/16 02:21 Dose: 100 mls/hr Pantoprazole Sodium 40 mg/ (Sodium Chloride) 10 mls @ 300 mls/hr IV Q12H [facility] Last Admin: 12/14/16 21:25 Dose: 300 mls/hr Piperacillin Sod/Tazobactam (Sod 3.375 gm/ Sodium Chloride) 50 mls @ 100 mls/ hr IV Q6H [facility] Morphine Sulfate (Morphine) 2 mg IVPUSH Q2H PRN PRN Reason: Pain (severe 7-10) Stop: 12/12/16 17:56 Pantoprazole Sodium (Protonix Iv) 40 mg IV Q12HR [facility] Last Admin: 12/11/16 21:02 Dose: 40 mg Potassium Chloride (Klor-Con M20) 40 meq PO ONETIME ONE Stop: 12/13/16 15:47 Last Admin: 12/13/16 16:46 Dose: 40 meq *Q Meaningful Use (DIS) - VTE *Q VTE Criteria *Q: - Stroke *Q Stroke Criteria *Q: - AMI *Q AMI Criteria *Q:
--- NOTE | 2016-12-16 12:18 | PCM.DCSUM1 ---
Discharge Summary - Hospital Course Brief History: This 66 year old male with pmh of mental challenges presented to the ED after Home Health found him to be tachycardiac, having significant diarrhea, and generalized weakness on 12/11/2016. He was previously discharged from the hospital on 12/08 after exploratory lap to repair a colon tear which occured during a colonoscopy on December 03. In the ED luekocytosis noted, 15 ,600. Hgb 12.0, BUN 30, Cr 3.1 AST 76, ALT 88. UA negative CT of abdomen revealed possible pocket of free air around sigmoid colon, with questionable microperforation. CXR negative. His abdominal incision was draining large amoutn of serosanguinous drainge. Wound culture obtained. BC obtained as well. - Discharge Data Discharge Date: 12/16/16 Discharge Disposition: DC/Tfer to [facility] 03 Condition: Good - Discharge Diagnosis/Problem(s) (1) Abdominal pain SNOMED Code(s): 76828472 ICD Code: R10.9 - UNSPECIFIED ABDOMINAL PAIN Status: Acute Current Visit : Yes (2) Acute renal failure SNOMED Code(s): 86069364 ICD Code: N17.9 - ACUTE KIDNEY FAILURE, UNSPECIFIED Status: Resolved Current Visit: Yes (3) Sepsis SNOMED Code(s): 25764573 ICD Code: A41.9 - SEPSIS, UNSPECIFIED ORGANISM Status: Resolved Current Visit: Yes (4) S/P exploratory laparotomy SNOMED Code(s): 722184728, 17415618, 263654457 ICD Code: Z98.890 - OTHER SPECIFIED POSTPROCEDURAL STATES Status: Chronic Current Visit: No - Patient Summary/Data Operative Procedure(s) Performed: 1) exploratory laparotomy. 2) repair of colon tear Consults: Consultations 12/11/16 17:55 Consult to Physician [CONS] Routine - Patient Instructions Diet: Regular Diet as Tolerated Activity: As Tolerated, Cough & Deep Breathe (IS) Showering/Bathing: No Tub Bathing/Swimming Notify Provider of: Fever, Increased Pain, Swelling and Redness, Drainage, Nausea and/or Vomiting Other/Special Instructions: PT/OT to evaluate and treat. Wound Vac orders per Dr. Wiggins. - Discharge Plan Prescriptions/Med Rec: Acetaminophen/HYDROcodone [[place] 325-5 MG] 1 tab PO Q4H PRN #15 tablet PRN Reason: Pain Ciprofloxacin [Ciprofloxacin HCl] 500 mg PO BID #20 tablet metroNIDAZOLE [Flagyl] 500 mg PO Q8H #30 tablet Home Medications: Home Meds RX: Acetaminophen [Tylenol] 325 mg PO Q4H PRN 02/01/14 [History] RX: Aspirin [Colten Chewable Aspirin] 81 mg PO DAILY 02/01/14 [History] RX: Ranitidine HCl [Zantac] 150 mg PO DAILY PRN 11/30/16 [History] Acetaminophen/HYDROcodone [[place] 325-5 MG] 1 tab PO Q4H PRN #15 tablet 12/16/16 [Rx] Ciprofloxacin [Ciprofloxacin HCl] 500 mg PO BID #20 tablet 12/16/16 [Rx] metroNIDAZOLE [Flagyl] 500 mg PO Q8H #30 tablet 12/16/16 [Rx] Referrals: Gregor Wiggins MD [Physician] - 12/23/16 9:30 am King Nuñez MD [Physician] - 12/17/16 (Follow up next [facility]) - Discharge Summary/Plan Comment DC Time >30 min.: No Discharge Summary/Plan Comment: Discharge Diagnoses: Abdominal pain- improved Questionable microperforation Sepsis- resolved. KARINA- resolved Deconditioning due to recent hospitalization and surgery Mentally challenged. Dell was treated with Zosyn and Flagyl with high suspicion for sepsis with only known source of abdomen. Lactate resolved. Hypotension and KARINA resolved with fluids. C diff negative. BC negative. Wound culture returned with skin kenneth. Dr. Wiggins placed wound vac to incision, please see his dictation. WBC has returned to normal, 7,720 today. He remains afebrile, still having some loose stools, but they have diminished. BUN 12 and Cr 1.2 He has some atelectasis to bilateral basis on CXR, requiring oxygen 2-3 L Encouraged to use IS, CDB. Not taking deep breaths due to abdominal incision. Denies cough or phlegm. Will order oxygen as needed at [facility]. I will continue Cipro and Flagyl upon discharge due to high suspicion of sepsis on admission. I will continue this for total of 14 days. He will be transferred to [facility] today. He is stable. He will need PT/OT to evaluate and treat and help care for wound vac while in place. Please see Dr. Wiggins's orders for care of wound vac. I spoke with Dr. Nuñez who has accepted care of patient upon transfer to [facility]. - General Info Date of Service: 12/16/16 Admission Dx/Problem (Free Text: Abdominal pain, diarrhea Subjective Update: Doing well today. Encouraged to continue to use IS, needs a lot of prompting. Has no concerns today. No SOB or chest pain. Eager for discharge. Functional Status: Reports: pain controlled, tolerating diet, ambulating, urinating - Review of Systems General: Reports: no symptoms. Denies: fever HEENT: Denies: sinus congestion, sore throat Pulmonary: Reports: no symptoms. Denies: shortness of breath, pleuritic chest pain, cough, sputum Cardiovascular: Denies: chest pain, edema Gastrointestinal: Reports: No symptoms. Denies: Abdominal pain, Nausea, Vomiting Genitourinary: Reports: no symptoms Neurological: Reports: no symptoms - Patient Data Vitals - Most Recent: Last Vital Signs Temp 98.2 F 12/16/16 11:28 Pulse 104 H 12/16/16 11:28 Resp 20 12/16/16 11:28 BP 121/92 H 12/16/16 11:28 Pulse Ox 91 L 12/16/16 11:28 Weight - Most Recent: 66.6 kg I&O - Last 24 hours: Intake & Output 12/15/16 12/16/16 12/16/16 22:59 06:59 14:59 Intake Total 640 440 Output Total 400 625 10 Balance 240 -185 -10 Lab Results - Last 24 hrs: Laboratory Results - last 24 hr 12/16/16 12/16/16 Range/Units 04:36 04:36 WBC 7.72 (4.0-11.0) K/uL RBC 3.14 L (4.50-5.90) M/uL Hgb 9.7 L (13.0-17.0) g/dL Hct 29.9 L (38.0-50.0) % MCV 95.2 (80.0-98.0) fL MCH 30.9 (27.0-32.0) pg MCHC 32.4 (31.0-37.0) g/dL RDW Std Deviation 50.0 (28.0-62.0) fl RDW Coeff of Shruthi 14 (11.0-15.0) % Plt Count 285 (150-400) K/uL MPV 9.80 (7.40-12.00) fL Neut % (Auto) 75.2 (48.0-80.0) % Lymph % (Auto) 11.5 L (16.0-40.0) % [place] % (Auto) 11.7 (0.0-15.0) % Eos % (Auto) 1.3 (0.0-7.0) % Baso % (Auto) 0.3 (0.0-1.5) % Neut # 5.8 H (1.4-5.7) K/uL Lymph # 0.9 (0.6-2.4) K/uL [place] # 0.9 H (0.0-0.8) K/uL Eos # 0.1 (0.0-0.7) K/uL Baso # 0.0 (0.0-0.1) K/uL Nucleated RBC % 0.0 /100WBC Nucleated RBCs # 0 K/uL Sodium 138 (136-146) mmol/L Potassium 3.6 (3.5-5.1) mmol/L Chloride 108 (98-110) mmol/L Carbon Dioxide 23 (21-31) mmol/L BUN 12 (6.0-23.0) mg/dL Creatinine 1.1 (0.6-1.5) mg/dL Est Cr Clr Drug Dosing 56.44 mL/min Estimated GFR (MDRD) > 60.0 ml/min Glucose 119 H (60-110) mg/dL Calcium 7.4 L (8.8-10.8) mg/dL Magnesium 2.0 (1.5-2.3) mEq/L Med Orders - Current: Current Medications Acetaminophen (Tylenol) 650 mg PO Q4H PRN PRN Reason: Pain (Mild 1-3)/fever Ciprofloxacin/Dextrose 400 mg/ (Premix) 200 mls @ 200 mls/hr IV Q12H [facility] Last Admin: 12/16/16 11:10 Dose: 200 mls/hr Metronidazole 500 mg/ Premix 100 mls @ 100 mls/hr IV QID [facility] Last Admin: 12/16/16 05:05 Dose: 100 mls/hr Ondansetron HCl (Zofran) 4 mg IVPUSH Q4H PRN PRN Reason: Nausea Discontinued Medications Calcium Carbonate/Glycine (Tums) 1,000 mg PO ONETIME ONE Stop: 12/15/16 10:47 Last Admin: 12/15/16 11:54 Dose: 1,000 mg Sodium Chloride (Normal Saline) 1,000 mls @ 999 mls/hr IV .Bolus ONE Stop: 12/11/16 13:31 Last Admin: 12/11/16 12:40 Dose: 999 mls/hr Ciprofloxacin/Dextrose 400 mg/ (Premix) 200 mls @ 200 mls/hr IV Q12H [facility] Sodium Chloride (Normal Saline) 2,000 mls @ 999 mls/hr IV STAT ONE Stop: 12/11/16 17:57 Last Admin: 12/11/16 16:22 Dose: 999 mls/hr Metronidazole 500 mg/ Premix 100 mls @ 100 mls/hr IV ONETIME ONE Stop: 12/11/16 16:56 Last Admin: 12/11/16 16:22 Dose: 100 mls/hr Levofloxacin/Dextrose 750 mg/ (Premix) 150 mls @ 100 mls/hr IV ONETIME ONE Stop: 12/11/16 17:27 Last Admin: 12/11/16 18:08 Dose: 100 mls/hr Piperacillin Sod/Tazobactam (Sod 2.25 gm/ Sodium Chloride) 50 mls @ 100 mls/hr IV Q6H [facility] Last Admin: 12/15/16 05:33 Dose: 100 mls/hr Sodium Chloride (Normal Saline) 1,000 mls @ 125 mls/hr IV ASDIRECTED [facility] Last Admin: 12/11/16 20:13 Dose: 125 mls/hr Lactated Ringer's (Ringers, Lactated) 1,000 mls @ 100 mls/hr IV ASDIRECTED [facility] Last Admin: 12/14/16 06:30 Dose: 100 mls/hr Metronidazole 500 mg/ Premix 100 mls @ 100 mls/hr IV Q6H [facility] Last Admin: 12/15/16 02:21 Dose: 100 mls/hr Pantoprazole Sodium 40 mg/ (Sodium Chloride) 10 mls @ 300 mls/hr IV Q12H [facility] Last Admin: 12/14/16 21:25 Dose: 300 mls/hr Piperacillin Sod/Tazobactam (Sod 3.375 gm/ Sodium Chloride) 50 mls @ 100 mls/ hr IV Q6H [facility] Morphine Sulfate (Morphine) 2 mg IVPUSH Q2H PRN PRN Reason: Pain (severe 7-10) Stop: 12/12/16 17:56 Pantoprazole Sodium (Protonix Iv) 40 mg IV Q12HR [facility] Last Admin: 12/11/16 21:02 Dose: 40 mg Potassium Chloride (Klor-Con M20) 40 meq PO ONETIME ONE Stop: 12/13/16 15:47 Last Admin: 12/13/16 16:46 Dose: 40 meq - Exam General: Reports: alert, oriented, cooperative Lungs: Reports: Clear to auscultation, Normal respiratory effort Cardiovascular: Reports: regular rate, regular rhythm Abdomen: Reports: bowel sounds present, soft, no tenderness, no distension, other (abdominal binder, wound vac to midline abdominal incision. ) Extremities: Reports: no edema, normal pulses Wound/Incisions: Reports: dressing dry and intact. Denies: erythema Neurological: Reports: no new focal deficit Psy/Mental Status: Reports: alert, normal affect, normal mood *Q Meaningful Use (DIS) - VTE *Q VTE Criteria *Q: - Stroke *Q Stroke Criteria *Q: - AMI *Q AMI Criteria *Q:
--- NOTE | 2016-12-16 13:48 | PCM.SURGPN ---
- General Info Date of Service: 12/16/16 - Review of Systems General: Reports: no symptoms (elizabeth po, BM X2, pain is in good control) - Patient Data Vitals - most recent: Last Vital Signs Temp 98.2 F 12/16/16 11:28 Pulse 104 H 12/16/16 11:28 Resp 20 12/16/16 11:28 BP 121/92 H 12/16/16 11:28 Pulse Ox 91 L 12/16/16 11:28 Weight - most recent: 146 lb 13.246 oz I&O - last 24 hours: Intake & Output 12/15/16 12/16/16 12/16/16 22:59 06:59 14:59 Intake Total 640 440 Output Total 400 625 10 Balance 240 -185 -10 Lab Results last 24 hrs: Laboratory Results - last 24 hr 12/16/16 12/16/16 Range/Units 04:36 04:36 WBC 7.72 (4.0-11.0) K/uL RBC 3.14 L (4.50-5.90) M/uL Hgb 9.7 L (13.0-17.0) g/dL Hct 29.9 L (38.0-50.0) % MCV 95.2 (80.0-98.0) fL MCH 30.9 (27.0-32.0) pg MCHC 32.4 (31.0-37.0) g/dL RDW Std Deviation 50.0 (28.0-62.0) fl RDW Coeff of Shruthi 14 (11.0-15.0) % Plt Count 285 (150-400) K/uL MPV 9.80 (7.40-12.00) fL Neut % (Auto) 75.2 (48.0-80.0) % Lymph % (Auto) 11.5 L (16.0-40.0) % [place] % (Auto) 11.7 (0.0-15.0) % Eos % (Auto) 1.3 (0.0-7.0) % Baso % (Auto) 0.3 (0.0-1.5) % Neut # 5.8 H (1.4-5.7) K/uL Lymph # 0.9 (0.6-2.4) K/uL [place] # 0.9 H (0.0-0.8) K/uL Eos # 0.1 (0.0-0.7) K/uL Baso # 0.0 (0.0-0.1) K/uL Nucleated RBC % 0.0 /100WBC Nucleated RBCs # 0 K/uL Sodium 138 (136-146) mmol/L Potassium 3.6 (3.5-5.1) mmol/L Chloride 108 (98-110) mmol/L Carbon Dioxide 23 (21-31) mmol/L BUN 12 (6.0-23.0) mg/dL Creatinine 1.1 (0.6-1.5) mg/dL Est Cr Clr Drug Dosing 56.44 mL/min Estimated GFR (MDRD) > 60.0 ml/min Glucose 119 H (60-110) mg/dL Calcium 7.4 L (8.8-10.8) mg/dL Magnesium 2.0 (1.5-2.3) mEq/L Med Orders - Current: Current Medications Acetaminophen (Tylenol) 650 mg PO Q4H PRN PRN Reason: Pain (Mild 1-3)/fever Ciprofloxacin/Dextrose 400 mg/ (Premix) 200 mls @ 200 mls/hr IV Q12H [facility] Last Admin: 12/16/16 11:10 Dose: 200 mls/hr Metronidazole 500 mg/ Premix 100 mls @ 100 mls/hr IV QID [facility] Last Admin: 12/16/16 12:29 Dose: 100 mls/hr Ondansetron HCl (Zofran) 4 mg IVPUSH Q4H PRN PRN Reason: Nausea Discontinued Medications Calcium Carbonate/Glycine (Tums) 1,000 mg PO ONETIME ONE Stop: 12/15/16 10:47 Last Admin: 12/15/16 11:54 Dose: 1,000 mg Sodium Chloride (Normal Saline) 1,000 mls @ 999 mls/hr IV .Bolus ONE Stop: 12/11/16 13:31 Last Admin: 12/11/16 12:40 Dose: 999 mls/hr Ciprofloxacin/Dextrose 400 mg/ (Premix) 200 mls @ 200 mls/hr IV Q12H [facility] Sodium Chloride (Normal Saline) 2,000 mls @ 999 mls/hr IV STAT ONE Stop: 12/11/16 17:57 Last Admin: 12/11/16 16:22 Dose: 999 mls/hr Metronidazole 500 mg/ Premix 100 mls @ 100 mls/hr IV ONETIME ONE Stop: 12/11/16 16:56 Last Admin: 12/11/16 16:22 Dose: 100 mls/hr Levofloxacin/Dextrose 750 mg/ (Premix) 150 mls @ 100 mls/hr IV ONETIME ONE Stop: 12/11/16 17:27 Last Admin: 12/11/16 18:08 Dose: 100 mls/hr Piperacillin Sod/Tazobactam (Sod 2.25 gm/ Sodium Chloride) 50 mls @ 100 mls/hr IV Q6H [facility] Last Admin: 12/15/16 05:33 Dose: 100 mls/hr Sodium Chloride (Normal Saline) 1,000 mls @ 125 mls/hr IV ASDIRECTED [facility] Last Admin: 12/11/16 20:13 Dose: 125 mls/hr Lactated Ringer's (Ringers, Lactated) 1,000 mls @ 100 mls/hr IV ASDIRECTED [facility] Last Admin: 12/14/16 06:30 Dose: 100 mls/hr Metronidazole 500 mg/ Premix 100 mls @ 100 mls/hr IV Q6H [facility] Last Admin: 12/15/16 02:21 Dose: 100 mls/hr Pantoprazole Sodium 40 mg/ (Sodium Chloride) 10 mls @ 300 mls/hr IV Q12H [facility] Last Admin: 12/14/16 21:25 Dose: 300 mls/hr Piperacillin Sod/Tazobactam (Sod 3.375 gm/ Sodium Chloride) 50 mls @ 100 mls/ hr IV Q6H [facility] Morphine Sulfate (Morphine) 2 mg IVPUSH Q2H PRN PRN Reason: Pain (severe 7-10) Stop: 12/12/16 17:56 Pantoprazole Sodium (Protonix Iv) 40 mg IV Q12HR [facility] Last Admin: 12/11/16 21:02 Dose: 40 mg Potassium Chloride (Klor-Con M20) 40 meq PO ONETIME ONE Stop: 12/13/16 15:47 Last Admin: 12/13/16 16:46 Dose: 40 meq - Exam General: alert, oriented Lungs: Clear to auscultation Abdomen: soft, no tenderness, no distension (wound with minimal drainage) - Problem List Review Problem List Initiated/Reviewed/Updated: Yes - My Orders Last 24 Hours: Active Orders 24 hr Category Date Time Status RT Incentive Spirometry [RC] ASDIRECTED Care 12/15/16 14:23 Active Ready for Discharge [RC] PER UNIT ROUTINE Care 12/16/16 10:16 Active Medication Orders Acetaminophen (Tylenol) 650 mg PO Q4H PRN PRN Reason: Pain (Mild 1-3)/fever Ciprofloxacin/Dextrose 400 mg/ (Premix) 200 mls @ 200 mls/hr IV Q12H [facility] Last Admin: 12/16/16 11:10 Dose: 200 mls/hr Infusion: 12/16/16 00:08 Dose: 200 mls/hr Admin: 12/15/16 23:08 Dose: 200 mls/hr Infusion: 12/15/16 13:00 Dose: 200 mls/hr Admin: 12/15/16 12:00 Dose: 200 mls/hr Metronidazole 500 mg/ Premix 100 mls @ 100 mls/hr IV QID [facility] Last Admin: 12/16/16 12:29 Dose: 100 mls/hr Infusion: 12/16/16 06:05 Dose: 100 mls/hr Admin: 12/16/16 05:05 Dose: 100 mls/hr Infusion: 12/16/16 01:37 Dose: 100 mls/hr Admin: 12/16/16 00:37 Dose: 100 mls/hr Infusion: 12/15/16 19:11 Dose: 100 mls/hr Admin: 12/15/16 18:11 Dose: 100 mls/hr Infusion: 12/15/16 15:02 Dose: 100 mls/hr Admin: 12/15/16 14:02 Dose: 100 mls/hr Ondansetron HCl (Zofran) 4 mg IVPUSH Q4H PRN PRN Reason: Nausea - Assessment Assessment (Free Text/Narrative):: doing well; wound looked good; txf to SNF; pt should have wound vac in SNF; fu 1 wk - Plan Plan (Free Text/Narrative):: doing well; wound looked good; txf to SNF; pt should have wound vac in SNF; fu 1 wk
== END 2016-12-16 14:00 | DRG 393 ==
LOC: MW.ED 12:20 → MW.ICU 16:03 → UNDOADMIN 17:41 → MW.ICU 17:41 → MW.MS 12-12 16:26 → MW.ICU 12-12 16:26 → UNDODISIN 12-16 14:00
PROVIDERS: ADMIT Family Medicine; ATTEND Family Medicine
DX: K91.3 Postprocedural intestinal obstruction (principal); A41.9 Sepsis, unspecified organism; N17.9 Acute kidney failure, unspecified; Z98.890 Other specified postprocedural states; R09.02 Hypoxemia; R62.50 Unspecified lack of expected normal physiological development in childhood; K21.9 Gastro-esophageal reflux disease without esophagitis; E78.00 Pure hypercholesterolemia, unspecified; Z87.891 Personal history of nicotine dependence; Z79.82 Long term (current) use of aspirin; Z79.899 Other long term (current) drug therapy
CPT/HCPCS: 36415; 43753; 71010; 74176; 80053; 83605; 83735; 85025; 87040 ×2; 87070; 93005; 96361; 96365; 99285; J7040 ×2; 71020; 71020-26; 74000; 74000-26; 80048; 81003; 84100; 87324; 96367; 96375; 97161-GP; 97605-GP; 99283; A9270-GY; C9113; J0744; J1956; J2543; J7050; J7120

== ENCOUNTER → 2017-01-12 | Outpatient (CLI) | payer MEDICARE, MEDICAID | LOC: MW.CHFP 08:00 | PROVIDERS: ATTEND Student in an Organized Health Care Education/Training Program | DX: L02.91 Cutaneous abscess, unspecified (principal); S80.02XA Contusion of left knee, initial encounter | CPT/HCPCS: G0463 ==

== ENCOUNTER → 2017-01-15 | Outpatient (CLI) | payer MEDICARE, MEDICAID | LOC: MW.CHFP 08:00 | PROVIDERS: ATTEND Student in an Organized Health Care Education/Training Program | DX: L02.429 Furuncle of limb, unspecified (principal) | CPT/HCPCS: G0463 ==

== ENCOUNTER → 2017-01-19 | Outpatient (CLI) | payer MEDICARE, MEDICAID | LOC: MW.CHFP 08:00 | PROVIDERS: ATTEND Student in an Organized Health Care Education/Training Program | DX: Z09 Encounter for follow-up examination after completed treatment for conditions other than malignant neoplasm (principal) | CPT/HCPCS: G0463 ==

== ENCOUNTER → 2017-01-28 | Outpatient (CLI) | payer MEDICARE, MEDICAID ==
--- NOTE | 2017-01-28 14:28 | CR ---
EXAMINATION: Two-view chest (PA and Lateral views). HISTORY: Fever. FINDINGS: The trachea is midline. The cardiomediastinal silhouette is within normal limits. No pulmonary infil trates, effusions or pneumothorax. Osseous structures appear unremarkable. Mild degenerative changes are noted within the thoracic spin e. IMPRESSION: No acute cardiopulmonary process.
== END ==
LOC: MW.CHFP 13:10
PROVIDERS: ATTEND Student in an Organized Health Care Education/Training Program
DX: R50.9 Fever, unspecified (principal); J41.1 Mucopurulent chronic bronchitis
CPT/HCPCS: 36415; 71020; 71020-26; 85025; 87804; G0463

== ENCOUNTER → 2017-02-17 | Outpatient (CLI) | payer MEDICARE, MEDICAID | LOC: MW.CHFP 09:07 | PROVIDERS: ATTEND Student in an Organized Health Care Education/Training Program | DX: Z00.00 Encounter for general adult medical examination without abnormal findings (principal); E78.1 Pure hyperglyceridemia | CPT/HCPCS: 36415; 80048; 80061; G0463 ==

== ENCOUNTER → 2017-03-01 | Outpatient (CLI) | payer MEDICARE, MEDICAID | LOC: MW.CHGS 08:00 | PROVIDERS: ATTEND Surgery | DX: K43.2 Incisional hernia without obstruction or gangrene (principal) | CPT/HCPCS: G0463 ==

== ENCOUNTER → 2017-07-12 | Day surgery (SDC) | payer MEDICAID, MEDICARE ==
[~2017-07-12] MED LIST: Acetaminophen/HYDROcodone 325-5 MG Tab PO PRN; Bupivacaine 0.5% 10 ML SDV ONE; Lactated Ringers 1,000 ML IV SCH; Morphine 10 MG/ML Syringe IVPUSH PRN; Ondansetron 4 MG/2 ML SDV IVPUSH PRN; ceFAZolin 1 GM Vial ONE; ceFAZolin 2 GM in Premix Bag 1 BAG IV SCH
[2017-07-12 06:50] VITALS: BP 127/92
== END | disposition home or self-care (01) ==
LOC: MW.SDS 06:37
PROVIDERS: ATTEND Surgery
DX: Z53.8 Procedure and treatment not carried out for other reasons (principal); E78.00 Pure hypercholesterolemia, unspecified; K21.9 Gastro-esophageal reflux disease without esophagitis; Z98.890 Other specified postprocedural states; Z87.891 Personal history of nicotine dependence
CPT/HCPCS: J0690; J7120

== ENCOUNTER 2017-07-26 07:51 | Day surgery (SDC) | payer MEDICARE, MEDICAID ==
--- NOTE | 2017-07-12 07:25 | PCM.PREANE ---
Preanesthetic Assessment - Anesthesia/Transfusion/Family Hx Anesthesia History: Prior Anesthesia Without Reaction Other Type of Anesthesia Reaction Comment: Patient denies any known problem with anesthesia in the past Family History of Anesthesia Reaction: No Transfusion History: No Prior Transfusion(s) Intubation History: Unknown - Review of Systems General: No Symptoms Pulmonary: No Symptoms Cardiovascular: No Symptoms Gastrointestinal: No Symptoms Neurological: No Symptoms Other: Reports: None - Physical Assessment O2 Sat by Pulse Oximetry: 97 Respiratory Rate: 16 Vital Signs: Last Vital Signs Temp 36.7 C 07/12/17 06:45 Pulse 89 07/12/17 06:45 Resp 16 07/12/17 06:45 BP 127/92 H 07/12/17 06:45 Pulse Ox 97 07/12/17 06:45 Height: 1.63 m Weight: 68.492 kg ASA Class: 2 Mental Status: Alert & Oriented x3 Airway Class: Mallampati = 2 Dentition: Reports: Normal Dentition Thyro-Mental Finger Breadths: 3 Mouth Opening Finger Breadths: 2 ROM/Head Extension: Full Lungs: Clear to Auscultation, Normal Respiratory Effort Cardiovascular: Regular Rate, Regular Rhythm - Allergies Allergies/Adverse Reactions: Allergies Allergy/AdvReac Type Severity Reaction Status Date / Time No Known Allergies Allergy Verified 07/07/17 14:03 - Blood Blood Available: No - Anesthesia Plan Pre-Op Medication Ordered: None - Acknowledgements Anesthesia Type Planned: General Anesthesia Pt an Appropriate Candidate for the Planned Anesthesia: Yes Alternatives and Risks of Anesthesia Discussed w Pt/Guardian: Yes Pt/Guardian Understands and Agrees with Anesthesia Plan: Yes PreAnesthesia Questionnaire Other HEENT History: wears glasses Cardiovascular History: Reports: High Cholesterol, Hypertension Respiratory History: Reports: Bronchitis, Recurrent Gastrointestinal History: Reports: Colon Polyp, GERD, Other (See Below) (s/p colon perforation during colonoscpy followed by colon resection 12/04 (Dr Razo)) Genitourinary History: Reports: None Other Genitourinary History: Prostate CA Musculoskeletal History: Reports: Fracture Other Musculoskeletal History: hx of fx rib Neurological History: Psychiatric History: Reports: Developmental Delay Oncologic (Cancer) History: Reports: Prostate Dermatologic History: Reports: Other (See Below) Other Dermatologic History: current rash on abdomen from abdominal binder - Past Surgical History Head Surgeries/Procedures: Reports: None Cardiovascular Surgical History: Reports: None GI Surgical History: Reports: Colon, Colonoscopy, Other (See Below) Other GI Surgeries/Procedures: Colonoscopy with polypectomy, hemorrhoiectomy, hx of perforation during Colonoscopy (laparotomy with repair) Male Surgical History: Reports: Other (See Below) Other Male Surgeries/Procedures: Prostate CA, radiation tx Oncologic Surgical History: Reports: None - SUBSTANCE USE Smoking Status *Q: Former Smoker (quit in 's) Tobacco Use Within Last Twelve Months: No Second Hand Smoke Exposure: No Days Per Week of Alcohol Use: 0 Number of Drinks Per Day: 0 Total Drinks Per Week: 0 Recreational Drug Use History: No - HOME MEDS Home Medications: Home Meds Aspirin [Colten Chewable Aspirin] 81 mg PO DAILY 02/01/14 [History] - CURRENT (IN HOUSE) MEDS Current Meds: Current Medications Cefazolin Sodium/Dextrose 2 gm (/ Premix) 50 mls @ 100 mls/hr IV ONETIME [facility] Lactated Ringer's (Ringers, Lactated) 1,000 mls @ 125 mls/hr IV ASDIRECTED [facility] Last Admin: 07/12/17 06:51 Dose: 125 mls/hr
[~2017-07-26 07:51] MED LIST changes: -Acetaminophen/HYDROcodone 325-5 MG Tab PO PRN; -Bupivacaine 0.5% 10 ML SDV ONE; +Midazolam 1 MG/ML 2 ML SDV ONE; -Morphine 10 MG/ML Syringe IVPUSH PRN; -Ondansetron 4 MG/2 ML SDV IVPUSH PRN; +Propofol 200 MG/20 ML SDV ONE; -ceFAZolin 1 GM Vial ONE; +fentaNYL 100 MCG/2 ML SDV ONE
--- NOTE | 2017-07-26 08:31 | PCM.PREANE ---
Preanesthetic Assessment - Anesthesia/Transfusion/Family Hx Anesthesia History: Prior Anesthesia Without Reaction Other Type of Anesthesia Reaction Comment: Patient denies any known problem with anesthesia in the past Family History of Anesthesia Reaction: No Transfusion History: No Prior Transfusion(s) Intubation History: Unknown - Review of Systems General: No Symptoms Pulmonary: No Symptoms Cardiovascular: No Symptoms Gastrointestinal: No Symptoms Neurological: No Symptoms Other: Reports: None - Physical Assessment O2 Sat by Pulse Oximetry: 95 Respiratory Rate: 16 Vital Signs: Last Vital Signs Temp 36.8 C 07/26/17 08:08 Pulse 93 07/26/17 08:08 Resp 16 07/26/17 08:08 BP 142/81 H 07/26/17 08:08 Pulse Ox 95 07/26/17 08:08 Height: 1.63 m Weight: 68.492 kg ASA Class: 3 Mental Status: Alert & Oriented x3 Airway Class: Mallampati = 2 Dentition: Reports: Normal Dentition, [place](s) (x1 upper left) Thyro-Mental Finger Breadths: 2 Mouth Opening Finger Breadths: 3 ROM/Head Extension: Limited/Partial Lungs: Clear to Auscultation, Normal Respiratory Effort Cardiovascular: Regular Rate, Regular Rhythm - Allergies Allergies/Adverse Reactions: Allergies Allergy/AdvReac Type Severity Reaction Status Date / Time No Known Allergies Allergy Verified 07/07/17 14:03 - Blood Blood Available: No - Anesthesia Plan Pre-Op Medication Ordered: None - Acknowledgements Anesthesia Type Planned: General Anesthesia Pt an Appropriate Candidate for the Planned Anesthesia: Yes Alternatives and Risks of Anesthesia Discussed w Pt/Guardian: Yes Pt/Guardian Understands and Agrees with Anesthesia Plan: Yes PreAnesthesia Questionnaire Other HEENT History: wears glasses Cardiovascular History: Reports: High Cholesterol, Hypertension Respiratory History: Reports: Bronchitis, Recurrent Gastrointestinal History: Reports: Colon Polyp, GERD, Other (See Below) Genitourinary History: Reports: None Other Genitourinary History: Prostate CA Musculoskeletal History: Reports: Fracture Other Musculoskeletal History: hx of fx rib Neurological History: Psychiatric History: Reports: Developmental Delay Oncologic (Cancer) History: Reports: Prostate Dermatologic History: Reports: Other (See Below) Other Dermatologic History: current rash on abdomen from abdominal binder - Past Surgical History Head Surgeries/Procedures: Reports: None Cardiovascular Surgical History: Reports: None GI Surgical History: Reports: Colon, Colonoscopy, Other (See Below) Other GI Surgeries/Procedures: Colonoscopy with polypectomy, hemorrhoiectomy, hx of perforation during Colonoscopy (laparotomy with repair) Male Surgical History: Reports: Other (See Below) Other Male Surgeries/Procedures: Prostate CA, radiation tx Oncologic Surgical History: Reports: None - SUBSTANCE USE Smoking Status *Q: Former Smoker (quit in ) Tobacco Use Within Last Twelve Months: No Second Hand Smoke Exposure: No Days Per Week of Alcohol Use: 0 Number of Drinks Per Day: 0 Total Drinks Per Week: 0 Recreational Drug Use History: No - HOME MEDS Home Medications: Home Meds Aspirin [Colten Chewable Aspirin] 81 mg PO DAILY 02/01/14 [History] - CURRENT (IN HOUSE) MEDS Current Meds: Current Medications Cefazolin Sodium/Dextrose 2 gm (/ Premix) 50 mls @ 100 mls/hr IV ONETIME [facility] Lactated Ringer's (Ringers, Lactated) 1,000 mls @ 125 mls/hr IV ASDIRECTED [facility] Last Admin: 07/26/17 08:09 Dose: 125 mls/hr Discontinued Medications Fentanyl (Sublimaze) Confirm Administered Dose 100 mcg .ROUTE .STK-MED ONE Stop: 07/26/17 07:15 Lidocaine HCl (Xylocaine-Mpf 1%) Confirm Administered Dose 5 ml .ROUTE .STK-MED ONE Stop: 07/26/17 07:15 Midazolam HCl (Versed 1 Mg/Ml) Confirm Administered Dose 2 mg .ROUTE .STK-MED ONE Stop: 07/26/17 07:14 Propofol (Diprivan 20 Ml) Confirm Administered Dose 200 mg .ROUTE .STK-MED ONE Stop: 07/26/17 07:16
[2017-07-26] MEDS ORDERED: Bupivacaine 0.5% 10 ML SDV ONE (09:02)
[2017-07-26] MEDS ORDERED: ceFAZolin 1 GM Vial ONE (09:03)
[2017-07-26] MEDS ORDERED: Succinylcholine/Normal Saline 200 MG/10 ML Syringe ONE (09:17)
[2017-07-26] MEDS ORDERED: Rocuronium 10 MG/ML 10 ML Syringe ONE (09:17)
[2017-07-26] MEDS ORDERED: Desflurane 240 ML Bottle ONE (09:41)
[2017-07-26] MEDS ORDERED: fentaNYL 100 MCG/2 ML SDV ONE ×2 (10:04→10:54)
[2017-07-26] MEDS ORDERED: Metoprolol Tartrate 5 MG/5 ML SDV ONE (10:05)
[2017-07-26] MEDS ORDERED: Neostigmine Methylsulfate 1 MG/ML 5 ML Syringe ONE (10:52)
[2017-07-26] MEDS ORDERED: Ondansetron 4 MG/2 ML SDV ONE (10:52)
--- NOTE | 2017-07-26 11:25 | PCM.OPNOTE ---
- General Post-Op/Procedure Note Date of Surgery/Procedure: 07/26/17 Operative Procedure(s): Repair incisional hernia with 15 x 19 cm Dulex mesh. Extensive adhesiolysis. Pre Op Diagnosis: Incisional hernia Post-Op Diagnosis: Large incisional hernia with extensive adhesions Anesthesia Technique: General ET Tube (ASA III) Primary Surgeon: Jeremiah Maddox Fluid Replacement, Intraop: 1,800 Output, Urine Amount: 30 Condition: Good Free Text/Narrative:: Dictation [id number]
[2017-07-26] MEDS: fentaNYL 100 MCG/2 ML SDV IVPUSH PRN ×2 (12:05→12:10)
--- NOTE | 2017-07-26 12:50 | PCM.POSTAN ---
POST ANESTHESIA ASSESSMENT - MENTAL STATUS Mental Status: Alert, Oriented - RESPIRATORY Respiratory Status: Respiratory Rate WNL, Airway Patent, O2 Saturation Stable - CARDIOVASCULAR CV Status: Pulse Rate WNL, Blood Pressure Stable - GASTROINTESTINAL GI Status: No Symptoms - PAIN Pain Score: 6 - POST OP HYDRATION Hydration Status: Adequate & Stable - OBSERVATIONS Free Text/Narrative:: no anesthesia problems
[2017-07-26] MEDS ORDERED: HYDROmorphone 2 MG/ML Syringe IVPUSH ONE (12:52)
[2017-07-26] MEDS ORDERED: Acetaminophen/HYDROcodone 325-5 MG Tab PO PRN (12:53)
[2017-07-26 14:37] VITALS: BP 145/80
--- NOTE | 2017-07-27 10:36 | OR ---
SURGEON: Jeremiah Maddox M.D. DATE OF PROCEDURE: 07/26/2017 OPERATIONS PERFORMED: 1. Repair of large incisional hernia with 15 x 19 cm Dulex mesh. 2. Extensive adhesiolysis. PREOPERATIVE DIAGNOSIS: Incarcerated incisional hernia. POSTOPERATIVE DIAGNOSIS: Incarcerated incisional hernia. ESTIMATED BLOOD LOSS: 30 mL. INTRAOPERATIVE FLUID REPLACEMENT: 1800 mL of crystalloid. ASA CLASSIFICATION: III. ANESTHESIA: General endotracheal. DESCRIPTION OF PROCEDURE: The patient was taken to the operating room and placed on the operating table in the supine position. Time-out was called for appropriate identification of the patient and procedure. Thigh-high TEDs and sequential compression boots were placed. Following satisfactory attainment of general endotracheal anesthesia, the abdomen was prepped with DuraPrep solution. Sterile drapes were applied. The old incision from previous laparotomy was excised. Dissection was carried down into the subcutaneous tissue. There was a large hernial defect. Multiple adhesions were present, and these had to be taken down to clear an adequate area for placement of the Dulex mesh. Extensive adhesiolysis was carried out with sharp dissection. No enterotomies were made. Once we had a satisfactory clearance, a 15 x 19 cm Dulex mesh was brought to the operating table. This was secured in an underlay fashion to the fascia with multiple interrupted horizontal mattress #0 Prolene sutures. All sutures were placed under direct vision with care taken to place them at least 2 cm away from the fascial defect and 2 cm away from the edge of the mesh, so that it more than adequately encompassed the undersurface. All sutures were placed under direct vision and held with hemostats. Once all sutures had been placed, they were tied down, securing the mesh. Wound was inspected for hemostasis, no significant bleeding was noted. Once that was accomplished, the fascia was able to be reapproximated over the mesh with a running 0 Prolene suture. Subcutaneous tissue was closed with interrupted #3-0 Vicryl. Skin edges were reapproximated with skin clips and the incision dressed with a sterile Tegaderm pad. Sponge, needle, and instrument counts were all correct. The patient tolerated the procedure well. Following emergence from anesthesia and extubation, he was taken to recovery room in satisfactory condition. EMORY / MYRIAM /[id number]
== END 2017-07-26 14:25 | disposition home or self-care (01) ==
LOC: MW.SDS 07:51
PROVIDERS: ATTEND Surgery
DX: K43.2 Incisional hernia without obstruction or gangrene (principal); K66.0 Peritoneal adhesions (postprocedural) (postinfection); J41.1 Mucopurulent chronic bronchitis; I10 Essential (primary) hypertension; Z79.82 Long term (current) use of aspirin; Z98.890 Other specified postprocedural states; Z86.010 Personal history of colon polyps; Z85.46 Personal history of malignant neoplasm of prostate; Z92.3 Personal history of irradiation; Z87.891 Personal history of nicotine dependence
CPT/HCPCS: 49560; 49568; A9270; C1781; J0690; J2250; J2405; J3010; J7120; 00752; J2704

== ENCOUNTER 2019-09-16 07:45 | Emergency (ER) | payer MEDICARE ==
[2019-09-16] MEDS ORDERED: Ibuprofen 600 MG Tab PO ONE (07:53)
[2019-09-16 07:55] VITALS: BP 169/96
--- NOTE | 2019-09-16 07:57 | EDM.PDOC ---
ED HPI GENERAL MEDICAL PROBLEM - General Chief Complaint: Upper Extremity Injury/Pain Stated Complaint: WRIST INJURY Time Seen by Provider: 09/16/19 07:50 - History of Present Illness INITIAL COMMENTS - FREE TEXT/NARRATIVE: HISTORY AND PHYSICAL: History of present illness: Patient is a 69-year-old male with presentation by EMS for pain in his right wrist that started when he woke up this morning but got worse when he was trying to open up his garage door. The patient says he did not slip or fall on it nor did he twisted and when he woke this morning there was some pain and discomfort for which he took an unknown pain reliever and when he was opening the garage door it seemed to get worse. He has no other joint or extremity complaints and has no other systemic issues. He has no known history of gout or arthritides. He says that the pain is worse with movement and there is no proximal elbow shoulder or forearm pain and no distal hand or finger pain Review of systems: As per history of present illness and below otherwise all systems reviewed and negative. Past medical history: As per history of present illness and as reviewed below otherwise noncontributory. Surgical history: As per history of present illness and as reviewed below otherwise noncontributory. Social history: No reported history of drug or alcohol abuse. Family history: As per history of present illness and as reviewed below otherwise noncontributory. Physical exam: General: Well-developed well-nourished man who is nontoxic and vital signs are noted by me. HEENT: Atraumatic, normocephalic, negative for conjunctival pallor or scleral icterus, mucous membranes moist, throat clear, neck supple, nontender, trachea midline. Lungs: Clear to auscultation, breath sounds equal bilaterally, chest nontender. Heart: S1S2, regular rate and rhythm no overt murmurs Abdomen: Soft, nondistended, nontender. NABS Negative for costovertebral tenderness. Pelvis: Stable nontender. Genitourinary: Deferred. Rectal: Deferred. Extremities: Atraumatic and full range of motion of all trimester the exception of the right wrist where there is some minimal soft tissue swelling but no warmth erythema or ecchymosis and there is mild diffuse tenderness throughout the wrist circumferentially. There is no proximal forearm elbow shoulder or humerus pain or discomfort and no distal hand or finger discomfort swelling or erythema and there are no skin changes. Compartment of the forearm is soft and intact, the legs are, negative for cords or calf pain. Neurovascular unremarkable. There are no palpable bony deformities at the right wrist. Neuro: Awake, alert, oriented. Cranial nerves II through XII unremarkable. Cerebellum unremarkable. Motor and sensory unremarkable throughout. Exam nonfocal. Diagnostics: X-ray right wrist Therapeutics: Motrin, short arm post mold and sling Impression: Right wrist pain/injury, chronic changes, small nondisplaced distal ulnar fracture Definitive disposition and diagnosis as appropriate pending reevaluation and review of above. right wrist Pain Score (Numeric/FACES): 10 - Related Data Allergies Allergy/AdvReac Type Severity Reaction Status Date / Time No Known Allergies Allergy Verified 07/07/17 14:03 Home Meds: Home Meds Aspirin [Colten Chewable Aspirin] 81 mg PO DAILY 02/01/14 [History] Past Medical History Other HEENT History: wears glasses Cardiovascular History: Reports: High Cholesterol, Hypertension Respiratory History: Reports: Bronchitis, Recurrent Gastrointestinal History: Reports: Colon Polyp, GERD, Other (See Below) (s/p colon perforation during colonoscpy followed by colon resection 12/04 (Dr Razo)) Genitourinary History: Reports: None Other Genitourinary History: Prostate CA Musculoskeletal History: Reports: Fracture Other Musculoskeletal History: hx of fx rib Neurological History: Psychiatric History: Reports: Developmental Delay Oncologic (Cancer) History: Reports: Prostate Dermatologic History: Reports: Other (See Below) Other Dermatologic History: current rash on abdomen from abdominal binder - Past Surgical History Head Surgeries/Procedures: Reports: None Cardiovascular Surgical History: Reports: None GI Surgical History: Reports: Colon, Colonoscopy, Other (See Below) Other GI Surgeries/Procedures: Colonoscopy with polypectomy, hemorrhoiectomy, hx of perforation during Colonoscopy (laparotomy with repair) Male Surgical History: Reports: Other (See Below) Other Male Surgeries/Procedures: Prostate CA, radiation tx Oncologic Surgical History: Reports: None Social & Family History - Family History Family Medical History: Noncontributory - Caffeine Use Caffeine Use: Reports: None Review of Systems - Review of Systems Review Of Systems: Comprehensive ROS is negative, except as noted in HPI. ED EXAM, GENERAL - Physical Exam Exam: See Below (See dictation) Course - Vital Signs Last Recorded V/S: Last Vital Signs Temp 36.4 C 09/16/19 07:51 Pulse 97 09/16/19 07:51 Resp 16 09/16/19 07:51 BP 169/96 H 09/16/19 07:51 Pulse Ox 96 09/16/19 07:51 - Orders/Labs/Meds Orders: Active Orders 24 hr Category Date Time Status DME for Discharge [COMM] Stat Oth 09/16/19 08:21 Ordered Meds: Medications Discontinued Medications Generic Name Dose Route Start Last Admin Trade Name Cinthia PRN Reason Stop Dose Admin Ibuprofen 600 mg 09/16/19 07:53 09/16/19 08:12 Motrin PO 09/16/19 07:54 600 mg ONETIME ONE Administration Departure - Departure Time of Disposition: 08:22 Disposition: Home, Self-Care 01 Condition: Good Clinical Impression: Right wrist pain Fracture of ulna Qualifiers: Encounter type: initial encounter Ulna location: distal Fracture type: closed Fracture morphology: unspecified fracture morphology Laterality: right Qualified Code(s): S52.601A - Unspecified fracture of lower end of right ulna, initial encounter for closed fracture - Discharge Information Referrals: PCP,Unknown [Primary Care Provider] - Forms: ED Department Discharge Additional Instructions: The following information is given to patients seen in the emergency department who are being discharged to home. This information is to outline your options for follow-up care. We provide all patients seen in our emergency department with a follow-up referral. The need for follow-up, as well as the timing and circumstances, are variable depending upon the specifics of your emergency department visit. If you don't have a primary care physician on staff, we will provide you with a referral. We always advise you to contact your personal physician following an emergency department visit to inform them of the circumstance of the visit and for follow-up with them and/or the need for any referrals to a consulting specialist. The emergency department will also refer you to a specialist when appropriate. This referral assures that you have the opportunity for followup care with a specialist. All of these measure are taken in an effort to provide you with optimal care, which includes your followup. Under all circumstances we always encourage you to contact your private physician who remains a resource for coordinating your care. When calling for followup care, please make the office aware that this follow-up is from your recent emergency room visit. If for any reason you are refused follow-up, please contact the [facility] emergency department at and ask to speak to the emergency department charge nurse. [facility] [address], [address] [place] [address] Elevate the area as much as possible and wear the post mold you have been given until you are followed up in the clinic . Use adex-tet-ytrplew anti- inflammatory medication such as Motrin/ibuprofen for pain management and stronger medication as prescribed and needed but only take one you're at home; and return to ER as needed and as discussed. Please call and schedule a follow- up appointment with one of our providers in the clinic using resources given to above for follow-up care - My Orders Last 24 Hours: My Active Orders 09/16/19 08:21 DME for Discharge [COMM] Stat - Assessment/Plan Last 24 Hours: My Active Orders 09/16/19 08:21 DME for Discharge [COMM] Stat
--- NOTE | 2019-09-16 08:18 | CR ---
Indication: Wrist pain. Technique: Three views of the right wrist were obtained. Comparison: None Findings: A suspected distal ulnar fracture is identified. Degenerative changes are identified particularly at the distal radial ulnar joint space. Chondrocalcinosis is identified at the ulnar carpal joint space. Extensive vascular calcifications are identified. Impression: Suspected distal ulnar fracture, nondisplaced. Dictated by Sheryl Burgos MD @ Sep 16 2019 8:15AM Signed by Dr. Sheryl Burgos @ Sep 16 2019 8:16AM
[2019-09-16 08:49] VITALS: PULSE 94
== END 2019-09-16 08:49 | disposition home or self-care (01) ==
LOC: MW.ED 07:45
DX: S52.601A Unspecified fracture of lower end of right ulna, initial encounter for closed fracture (principal); I10 Essential (primary) hypertension; Z79.82 Long term (current) use of aspirin; X58.XXXA Exposure to other specified factors, initial encounter
CPT/HCPCS: 29125; 73110; 99284; A9270; 99283

== ENCOUNTER 2022-03-06 08:10 | Day surgery (SDC) | payer MEDICARE, SELFPAY ==
[~2022-03-06 08:10] MED LIST changes: -Midazolam 1 MG/ML 2 ML SDV ONE; -Propofol 200 MG/20 ML SDV ONE; -ceFAZolin 2 GM in Premix Bag 1 BAG IV SCH; -fentaNYL 100 MCG/2 ML SDV ONE
[2022-03-06] MEDS ORDERED: Propofol 200 MG/20 ML SDV ONE (08:36)
[2022-03-06] MEDS ORDERED: Lidocaine 2% 5 ML SDV ONE (08:36)
[2022-03-06] MEDS ORDERED: fentaNYL 100 MCG/2 ML SDV ONE (08:36)
[2022-03-06] MEDS ORDERED: Lactated Ringers 1,000 ML IV SCH (10:00)
[2022-03-06 10:09] VITALS: PULSE 76
[2022-03-06 10:50] VITALS: BP 151/74
== END 2022-03-06 10:40 | disposition home or self-care (01) ==
LOC: MW.SDS 08:10
PROVIDERS: ATTEND Surgery
DX: Z12.11 Encounter for screening for malignant neoplasm of colon (principal); I12.9 Hypertensive chronic kidney disease with stage 1 through stage 4 chronic kidney disease, or unspecified chronic kidney disease; N18.9 Chronic kidney disease, unspecified; E78.2 Mixed hyperlipidemia; K21.9 Gastro-esophageal reflux disease without esophagitis; Z86.718 Personal history of other venous thrombosis and embolism; Z86.010 Personal history of colon polyps; Z79.82 Long term (current) use of aspirin; Z98.890 Other specified postprocedural states; Z79.899 Other long term (current) drug therapy
CPT/HCPCS: G0105; J2704; J3010; J7120

== ENCOUNTER 2022-03-27 16:50 | Emergency (ER) | payer MEDICARE ==
[2022-03-27 18:00] LABS: ESTIMATED GFR 46.3 ml/min; POTASSIUM,K 4.2 mmol/L (3.5-5.1)
[2022-03-27] MEDS ORDERED: Enoxaparin 60 MG/0.6 ML Syringe SUBCUT ONE (18:09)
[2022-03-27 18:39] VITALS: BP 145/84; PULSE 101
== END 2022-03-27 18:37 | disposition home or self-care (01) ==
LOC: MW.ED 16:50
DX: I82.402 Acute embolism and thrombosis of unspecified deep veins of left lower extremity (principal); I10 Essential (primary) hypertension; Z79.899 Other long term (current) drug therapy; Z79.01 Long term (current) use of anticoagulants
CPT/HCPCS: 36415; 80053; 85025; 85610; 96372; 99284; J1650

== ENCOUNTER 2022-09-14 11:08 | Emergency (ER) | payer MEDICARE ==
[2022-09-14] MEDS ORDERED: traMADol 50 MG Tab PO ONE (11:15)
[2022-09-14 13:41] VITALS: BP 118/68; PULSE 82
== END 2022-09-14 13:35 | disposition home or self-care (01) ==
LOC: MW.ED 11:08
DX: S83.92XA Sprain of unspecified site of left knee, initial encounter (principal); E78.00 Pure hypercholesterolemia, unspecified; I10 Essential (primary) hypertension; Z79.01 Long term (current) use of anticoagulants; Z86.718 Personal history of other venous thrombosis and embolism
CPT/HCPCS: 73560; 93971; 99284; A9270